=== PATIENT | male | born 1955 | race Caucasian/White ===

== ENCOUNTER 2020-07-08 15:59 | Outpatient (REF) | payer OTHER, SELFPAY ==
--- NOTE | 2020-07-08 16:01 | CT_ITS ---
EXAMINATION: CT CHEST SCREENING CLINICAL INFORMATION: Lung cancer screening COMPARISON: Previous chest CT scans most recent March 2020 TECHNIQUE: Multidetector volumetric CT imaging of the chest is performed without contrast using low dose technique. Additional 2D coronal and sagittal reformatted images and axial 3D maximum intensity projection (MIP) images are generated on the CT workstation. This CT examination was performed using dose optimization techniques as appropriate, variously including the following: *Automated exposure control *Adjustment of mA and/or kV according to patient size (this includes techniques or standardized protocols for targeted exams where dose is matched to indication/reason for exam; i.e. extremities or head) *Use of iterative reconstruction technique DLP: 65 mGy-cm FINDINGS: LUNGS: There is evidence of paraseptal emphysema. There is a biapical pleural and parenchymal scarring. The previously identified new 1.2 cm right apical pulmonary nodule just inferior to an apical bulla axial image 68 series 5 is unchanged from previous exam March 2020. There is a 3 x 4 mm right lower lobe nodule axial image 249 series 5 that is stable. There is a 2 mm peripheral or subpleural right middle lobe nodule axial image 288 series 5 that is stable. There is a 3 mm peripheral right lower lobe nodule axial image 308 series 5 that is stable. MEDIASTINUM: The ascending thoracic aorta is slightly dilated measuring 4.3 cm. The aortic arch and descending thoracic aorta are upper normal in size. The heart does not appear enlarged. There is minimal coronary artery calcification. There is no pericardial effusion. There are no enlarged lymph nodes. The visualized thyroid gland is unremarkable. PLEURA: There is no pleural effusion. No pleural mass or thickening. AXILLA: No lymphadenopathy. UPPER ABDOMEN: There may be cortical thinning or scarring in the upper pole of the left kidney. OSSEOUS STRUCTURES: There are degenerative changes of the spine. There are old left lateral rib fractures. CT/CT lung screening IMPRESSION: Paraseptal emphysema. Stable pulmonary nodules, largest a 1.1 cm apical right upper lobe nodule adjacent to small bulla or bleb. ASSESSMENT: Lung-RADS category 2: Benign RECOMMENDATION: Annual low-dose chest CT follow-up recommended.
== END 2020-07-08 16:00 | disposition home or self-care (01) ==
LOC: HO.CT 15:59
PROVIDERS: PCP Nurse Practitioner Family; Visit Provider Surgery
DX: Z12.2 Encounter for screening for malignant neoplasm of respiratory organs (principal); R91.1 Solitary pulmonary nodule; Z87.891 Personal history of nicotine dependence
CPT/HCPCS: 71250

== ENCOUNTER → 2020-07-18 08:47 | Outpatient (BNVA) | payer OTHER, SELFPAY | PROVIDERS: PCP Nurse Practitioner Family; Visit Provider Surgery | DX: R91.1 Solitary pulmonary nodule (principal); J44.9 Chronic obstructive pulmonary disease, unspecified | CPT/HCPCS: 99215 ==

== ENCOUNTER 2020-07-29 15:44 | Outpatient (REF) | payer OTHER, SELFPAY ==
--- NOTE | 2020-07-29 17:31 | PFT_ITS ---
INDICATION: Preop. SPIROMETRY: FEV1 to FVC 79% with an FEV1 of 3.23 L, which is 90% predicted, and an FVC of 4.1 L, which is 85% predicted. No significant response to bronchodilators noted. LUNG VOLUMES: Total lung capacity 98% predicted with diffusion capacity of 78% predicted. Flow volume loop appears to be relatively normal. No comparisons at this time. IMPRESSION: No obstructive nor restrictive ventilatory defects identified. No significant response to bronchodilators noted. Normal maximum voluntary ventilation. Lung volumes appear to be within normal limits. The patient does have an isolated mild diffusion impairment. Otherwise, normal study. Clinical correlation warranted. MD PAU Du/MODPatel / [id number]
== END 2020-07-29 15:45 | disposition home or self-care (01) ==
LOC: HO.RESP 15:44
PROVIDERS: PCP Nurse Practitioner Family; Visit Provider Surgery
DX: R91.1 Solitary pulmonary nodule (principal)
CPT/HCPCS: 94060; 94727; 94729

== ENCOUNTER 2020-11-03 10:13 | Outpatient (REF) | payer OTHER, SELFPAY ==
--- NOTE | ~2020-11-03 | XR_ITS ---
EXAMINATION: XR CHEST CLINICAL INFORMATION: Cough COMPARISON: 06/20/2018 TECHNIQUE: 2 views of the chest were obtained. FINDINGS: Mild tenting of the right hemidiaphragm is new from prior. On the lateral view, there is opacification overlying the cardiac silhouette, which may be in the anterior aspect of the right lower lobe. No pneumothorax. The cardiomediastinal silhouette is within normal limits. No acute osseous abnormality. XR/XR chest 2V IMPRESSION: Right basilar opacification, best seen on the lateral view, likely in the right lower lobe. This is suspicious for pneumonia. Follow-up to resolution.
== END 2020-11-03 10:14 | disposition home or self-care (01) ==
LOC: HO.XRAY 10:13
PROVIDERS: PCP Nurse Practitioner Family; Visit Provider Internal Medicine
DX: R05 Cough (principal); J45.909 Unspecified asthma, uncomplicated; J18.9 Pneumonia, unspecified organism; R06.02 Shortness of breath
CPT/HCPCS: 71046; 99212

== ENCOUNTER → 2020-12-04 15:41 | Outpatient (BNVA) | payer OTHER, SELFPAY | PROVIDERS: PCP Nurse Practitioner Family; Visit Provider Internal Medicine | DX: J18.9 Pneumonia, unspecified organism (principal); J44.9 Chronic obstructive pulmonary disease, unspecified; R05 Cough | CPT/HCPCS: 99212 ==

== ENCOUNTER → 2021-01-29 15:51 | Outpatient (BNVA) | payer OTHER, SELFPAY | PROVIDERS: PCP Nurse Practitioner Family; Visit Provider Internal Medicine | DX: J44.9 Chronic obstructive pulmonary disease, unspecified (principal); R91.1 Solitary pulmonary nodule | CPT/HCPCS: 99212 ==

== ENCOUNTER 2021-02-17 06:57 | Outpatient (REF) | payer OTHER, SELFPAY ==
[2021-02-17 11:55] LABS: Alanine Aminotransferase 18 U/L (0-40); Albumin Level 4.4 g/dL (3.5-5.0); Alkaline Phosphatase 78 U/L (39-117); Anion Gap 12 (12-20); Aspartate Amino Transferase 19 U/L (5-37); Bilirubin Total 0.6 mg/dL (0.0-1.0); Blood Urea Nitrogen 16 mg/dL (9-16); Calcium 9.3 mg/dL (8.4-10.2); Carbon Dioxide 29 mmol/L (22-29); Chloride 104 mmol/L (96-108); Cholesterol 176 mg/dL; Estimated Glomerular Filt Rate > 60; Glucose Fasting 92 mg/dL (60-99); HDL Cholesterol 68 mg/dL; LDL Cholesterol Calculated 96 mg/dl; Sodium 141 mmol/L (135-145); Total Protein 6.6 g/dL (6.5-8.0); Triglycerides 60 mg/dL
[2021-02-17 12:17] LABS: Prostate Specific Antigen Scr 1.43 ng/mL (<0.05-4.0); TSH reflex Free T4 1.45 uIU/mL (0.32-4.0)
== END 2021-02-17 06:58 | disposition home or self-care (01) ==
LOC: HO.HMGCLDS 06:57
PROVIDERS: PCP Nurse Practitioner Family; Visit Provider Nurse Practitioner Family
DX: Z00.00 Encounter for general adult medical examination without abnormal findings (principal); Z12.5 Encounter for screening for malignant neoplasm of prostate
CPT/HCPCS: 36415; 80053; 80061; 84153; 84443

== ENCOUNTER → 2021-06-01 15:54 | Outpatient (BNVA) | payer OTHER, SELFPAY | PROVIDERS: PCP Nurse Practitioner Family; Visit Provider Internal Medicine | DX: G47.33 Obstructive sleep apnea (adult) (pediatric) (principal); J44.9 Chronic obstructive pulmonary disease, unspecified; Z99.89 Dependence on other enabling machines and devices | CPT/HCPCS: 99212 ==

== ENCOUNTER 2021-09-03 15:42 | Outpatient (REF) | payer MEDICARE, SELFPAY ==
--- NOTE | ~2021-09-03 | US_ITS ---
EXAMINATION: US EXTREMITY NONVASCULAR, LEFT BACK CLINICAL INFORMATION: Soft tissue disorder, unspecified. COMPARISON: Chest CT 07/08/2020 and 04/09/2020. TECHNIQUE: Linear ultrasound probe was used to examine the area of clinical concern in the left back. FINDINGS: A 4.2 x 4.9 x 1.3 cm thickened hypoechoic area is seen in the left back which has ultrasound appearances similar to fat and most likely represents a lipoma. A similar area on the right upper back was examined which appeared normal. No abnormal fluid collections are seen. US/US extremity nonvascular vega IMPRESSION: 4.9 cm hypoechoic mass with echogenic characteristics of fat. This most likely represents a lipoma.
== END 2021-09-03 15:43 | disposition home or self-care (01) ==
LOC: HO.US 15:42
PROVIDERS: Visit Provider Nurse Practitioner Family
DX: M79.9 Soft tissue disorder, unspecified (principal); R22.2 Localized swelling, mass and lump, trunk
CPT/HCPCS: 76882

== ENCOUNTER → 2021-09-07 15:47 | Outpatient (BNVA) | payer MEDICARE, SELFPAY | PROVIDERS: PCP Nurse Practitioner Family; Visit Provider Internal Medicine | DX: G47.33 Obstructive sleep apnea (adult) (pediatric) (principal); R91.1 Solitary pulmonary nodule; J44.9 Chronic obstructive pulmonary disease, unspecified; Z99.89 Dependence on other enabling machines and devices | CPT/HCPCS: 99212 ==

== ENCOUNTER 2022-01-21 14:24 | Outpatient (REF) | payer MEDICARE, SELFPAY ==
--- NOTE | ~2022-01-21 | XR_ITS ---
EXAMINATION: XR CHEST CLINICAL INFORMATION: Bronchitis. COMPARISON: 11/03/2020 TECHNIQUE: 2 views of the chest were obtained. FINDINGS: The lungs are well expanded. There is no focal consolidation, edema, or effusion. No pneumothorax. The cardiomediastinal silhouette is within normal limits. No acute osseous abnormality. XR/XR chest 2V IMPRESSION: No acute pulmonary finding.
== END 2022-01-21 14:25 | disposition home or self-care (01) ==
LOC: HO.XRAY 14:24
PROVIDERS: PCP Nurse Practitioner Family; Visit Provider Internal Medicine
DX: J44.9 Chronic obstructive pulmonary disease, unspecified (principal); J40 Bronchitis, not specified as acute or chronic; R05.9 Cough, unspecified
CPT/HCPCS: 71046; 99212

== ENCOUNTER 2022-05-22 07:10 | Outpatient (REF) | payer MEDICARE, SELFPAY ==
[2022-05-22 08:30] LABS: Alanine Aminotransferase 30 U/L (0-40); Albumin Level 4.5 g/dL (3.5-5.0); Alkaline Phosphatase 78 U/L (39-117); Anion Gap 15 (12-20); Aspartate Amino Transferase 25 U/L (5-37); Bilirubin Total 0.5 mg/dL (0.0-1.0); Blood Urea Nitrogen 18 mg/dL (9-16); Calcium 9.6 mg/dL (8.4-10.2); Carbon Dioxide 27 mmol/L (22-29); Chloride 100 mmol/L (96-108); Cholesterol 203 mg/dL; Estimated Glomerular Filt Rate > 60; Glucose Fasting 107 mg/dL (60-99); HDL Cholesterol 53 mg/dL; LDL Cholesterol Calculated 133 mg/dl; Potassium 4.7 mmol/L (3.3-5.1); Sodium 137 mmol/L (135-145); Total Protein 6.8 g/dL (6.5-8.0); Triglycerides 88 mg/dL
[2022-05-22 08:53] LABS: TSH reflex Free T4 1.37 uIU/mL (0.32-4.0)
[2022-05-22 09:17] LABS: Appearance Urine Clear; Color Urine Dark Yellow; Glucose Urine UA Negative (Negative); Leukocyte Esterase Urine Trace (Negative); Nitrite Urine Negative (Negative); PH 5.5 (5.0-9.0); UMIC TRIGGER UACC YES; Urine Blood Negative (Negative); Urine Ketones Trace mg/dL (Negative); Urine Protein Trace mg/dL (Neg-Trace)
[2022-05-22 09:23] LABS: Bacteria Urine None Seen (None Seen); Hyaline Casts Urine 0-2 /LPF (0-2); RBC Urine 0-2 /HPF (0-2); Squamous Epithelial Cell Urine 0-2 /HPF (0-2); WBC Urine 0-5 /HPF (0-5)
== END 2022-05-22 07:11 | disposition home or self-care (01) ==
LOC: HO.LAB 07:10
PROVIDERS: PCP Nurse Practitioner Family; Visit Provider Nurse Practitioner Family
DX: Z00.00 Encounter for general adult medical examination without abnormal findings (principal)
CPT/HCPCS: 36415; 80053; 80061; 81001; 84443

== ENCOUNTER 2022-07-31 07:12 | Outpatient (REF) | payer MEDICARE, SELFPAY ==
[2022-07-31 08:10] LABS: Cholesterol 164 mg/dL; HDL Cholesterol 53 mg/dL; LDL Cholesterol Calculated 98 mg/dl; Triglycerides 68 mg/dL
== END 2022-07-31 07:13 | disposition home or self-care (01) ==
LOC: HO.LAB 07:12
PROVIDERS: PCP Nurse Practitioner Family; Visit Provider Nurse Practitioner Family
DX: E78.5 Hyperlipidemia, unspecified (principal)
CPT/HCPCS: 36415; 80061

== ENCOUNTER 2022-11-01 08:10 | Day surgery (SDC) | payer MEDICARE, SELFPAY ==
--- NOTE | 2022-10-29 13:41 | HO.ANESPROP2 ---
Documented by User: Audra Hung NP 10/29/22 13:41 HPI - Anesthesia Eval Consult details Narrative: 67yo M for Colonoscopy PMFSH Active Problems Active Problems: All Active Problems (Updated 05/22/22 @ 11:13 by Eb Crowell, [facility]) Dyslipidemia (Acute) Bronchitis (Acute) Physical exam (Acute) Soft tissue complaint (Acute) LUCINA on CPAP (Acute) COPD (chronic obstructive pulmonary disease) (Acute) Pneumonia (Acute) Mild reactive airways disease (Acute) Cough (Acute) Screening PSA (prostate specific antigen) (Acute) Physical exam (Acute) Pulmonary nodule (Acute) Past Medical History Medical History Bronchitis COPD (chronic obstructive pulmonary disease) Cough Erectile dysfunction Heart murmur HTN (hypertension) Mild reactive airways disease Nocturia LUCINA on CPAP Pneumonia Sleep apnea Tubular adenoma of colon Family History Family History Father No problems noted. Mother Cancer Surgical History Surgical History S/P lobectomy of lung Social History Social History Housing: House Patient Tobacco Use Status: Former Tobacco user e-Cigarette/Vaping Use: Never Used Use of substances other than those prescribed or required for medical reasons: No Are you DNR?: No Advance Directives: No Advance Directives Information Provided: Yes Recently lost weight without trying: No Nutrition Risks: No Nutritional Risk service: No Current occupational status: employed Cognitive needs: No Hearing needs: No Vision needs: Yes Meds Allergies Allergy/AdvReac Type Severity Reaction Status Date / Time No Known Allergies Allergy Verified 08/16/22 07:38 [No Known Allergies*] Home Medications Medication Instructions Recorded Confirmed Last Taken Type hydrochlorothiazide 25 mg tablet 25 mg PO DAILY 07/18/20 11/01/22 Unknown History losartan 100 mg tablet 100 mg PO DAILY 07/18/20 11/01/22 11/01/22 History multivitamin 1 tab PO DAILY 08/11/20 11/01/22 Unknown History Exam Exam Date and Time: October 29, 2022 134 Assessment and Plan Assessment Anesthesia Assessment: Chart Reviewed Documented by User: Jaydon Villasenor MD 11/01/22 09:13 [facility] Past Medical History Medical History Bronchitis COPD (chronic obstructive pulmonary disease) Cough Erectile dysfunction Heart murmur HTN (hypertension) Mild reactive airways disease Nocturia LUCINA on CPAP Pneumonia Sleep apnea Tubular adenoma of colon Family History Family History Father No problems noted. Mother Cancer Family history of problems with anesthesia: No Surgical History Surgical History S/P lobectomy of lung History of Problems with Anesthesia: No Social History Social History Housing: House Patient Tobacco Use Status: Former Tobacco user e-Cigarette/Vaping Use: Never Used Use of substances other than those prescribed or required for medical reasons: No Are you DNR?: No Advance Directives: No Advance Directives Information Provided: Yes Recently lost weight without trying: No Nutrition Risks: No Nutritional Risk service: No Current occupational status: employed Cognitive needs: No Hearing needs: No Vision needs: Yes Meds Allergies Allergy/AdvReac Type Severity Reaction Status Date / Time No Known Allergies Allergy Verified 08/16/22 07:38 [No Known Allergies*] Home Medications Medication Instructions Recorded Confirmed Last Taken Type hydrochlorothiazide 25 mg tablet 25 mg PO DAILY 07/18/20 11/01/22 Unknown History losartan 100 mg tablet 100 mg PO DAILY 07/18/20 11/01/22 11/01/22 History multivitamin 1 tab PO DAILY 08/11/20 11/01/22 Unknown History Exam Airway Mallampati Class: II TM Dist: >3cm Neck ROM: Limited Heart: rrr Lungs: cta Assessment and Plan Final Anesthetic Review Family History of Problems with Anesthesia: No History of Problems with Anesthesia: No NPO: Yes ASA Class: II Final Preanesthetic Review: No Changes in Pt Med Stat, Meds/Allgs Chart Reviewed, Consent Obtained/Reviewed and Anes Risks/Benef Reviewed Patient Risk: Intermediate Procedure Risk: Low Anesthetic Plan Anesthetic Plan: MAC: and Agree w/ Assess. and Plan Disposition: Standard PACU
[2022-11-01 09:03] VITALS: BMI 28.5
[2022-11-01 09:08] VITALS: BP 156/90; PULSE 78; RESP 16; TEMP 36.8; O2SAT 97
[2022-11-01] MEDS: Lactated Ringers 1,000 ML 100 ML IVCONT (09:21)
[2022-11-01 10:46] VITALS: BP 104/71; PULSE 62; RESP 18; TEMP 36.3; O2SAT 99
--- NOTE | 2022-11-01 10:46 | P.BOP_ITS ---
Brief Operative Note Date of Service: 11/01/22 Pre-op diagnosis: Screening Post-op diagnosis: other (Polyp) Procedure: Colonoscopy to the cecum and TI with bx/removal of polyp Surgeon: Bernabe Garza Anesthesia: MAC Was an Fisher Diving used for this Procedure?: No Estimated blood loss (mL): 2.0 Pathology: other (A. Polyp at 40cm) Condition: stable Disposition: PACU
[2022-11-01 11:01] VITALS: BP 109/79; PULSE 59; RESP 18; TEMP 36.8; O2SAT 99
--- NOTE | 2022-11-01 11:46 | OP_ITS ---
SURGEON: Bernabe Garza MD INDICATIONS: The patient presents for evaluation of personal history of tubular adenomas of the colon and colorectal cancer screening. Full consent has been obtained from him for this, including risks of bleeding and perforation. PREOPERATIVE DIAGNOSIS: POSTOPERATIVE DIAGNOSIS: PROCEDURE PERFORMED: Colonoscopy to the cecum and terminal ileum with biopsy and removal of polyp. ESTIMATED BLOOD LOSS: COMPLICATIONS: ANESTHESIA: Monitored anesthesia care. ASSISTANTS: SPECIMENS: PREOPERATIVE DIAGNOSES: Colorectal cancer screening and personal history of tubular adenomas of the colon. POSTOPERATIVE DIAGNOSES: Colorectal cancer screening and personal history of tubular adenomas of the colon, small colon polyp, mild sigmoid diverticulosis, small internal hemorrhoids. DESCRIPTION OF PROCEDURE: The patient was placed in the left lateral decubitus position. The digital rectal exam revealed no abnormalities. The Olympus video pediatric colonoscope was entered into the rectum and advanced easily to the cecum. Once in the cecum, I did identify a normal-appearing cecal pouch with appendiceal orifice and a normal-appearing ileocecal valve. The terminal ileum was cannulated and appeared normal. The scope was withdrawn back in the colon. The entire cecum and ileocecal valve appeared normal. The scope was slowly withdrawn assessing all mucosal surfaces carefully. Preparation was excellent. At 40 cm, was a flat, approximately 4 mm polyp, which is biopsied and completely removed with a cold biopsy forceps. I did not visualize any other polyps, colitis, nor angiodysplasia. There was a mild amount of sigmoid diverticulosis. In the rectum, the scope was retroflexed visualizing small internal hemorrhoids, but no other pathology. The rectal mucosa appeared normal. The scope was straightened out and withdrawn from the patient. He tolerated the procedure well and was returned to the recovery area in stable condition. IMPRESSION: 1. Small colon polyp. 2. Diverticulosis. 3. Internal hemorrhoids. PLAN: The results of the biopsy will be checked. Given his previous history, I would recommend a followup colonoscopy in 3 years for further surveillance. He would otherwise see me on a p.r.n. basis. MD CAIN Mercer/EZIO / [id number]
== END 2022-11-01 11:30 | disposition home or self-care (01) ==
PROVIDERS: PCP Nurse Practitioner Family; Visit Provider Internal Medicine
PROC: 0DJD8ZZ Inspection of Lower Intestinal Tract, Via Natural or Artificial Opening Endoscopic (ICD-10-PCS; CPT 45378; principal; 2022-11-01 09:40)
DX: Z12.11 Encounter for screening for malignant neoplasm of colon (principal); D12.5 Benign neoplasm of sigmoid colon; K57.30 Diverticulosis of large intestine without perforation or abscess without bleeding; K64.8 Other hemorrhoids; I10 Essential (primary) hypertension; J44.9 Chronic obstructive pulmonary disease, unspecified; G47.33 Obstructive sleep apnea (adult) (pediatric); Z79.51 Long term (current) use of inhaled steroids; Z99.89 Dependence on other enabling machines and devices; Z85.118 Personal history of other malignant neoplasm of bronchus and lung; Z87.891 Personal history of nicotine dependence
CPT/HCPCS: 45380; 88305

== ENCOUNTER 2023-03-30 15:44 | Outpatient (AMB) | payer MEDICARE, SELFPAY ==
[2023-03-30 15:46] VITALS: BP 124/68; PULSE 73; O2SAT 97; BMI 28.6
--- NOTE | 2023-03-30 15:46 | MHC.OFFVIS ---
Intake Vital Signs 03/30/23 15:46 Height 5 ft 11 in Weight 205 lb 0.478 oz BMI 28.6 BP 124/68 Blood Pressure Location Lt brachial Position Sitting Pulse 73 Pulse Source Pulse Oximeter Pulse Oximetry (%) 97 Oxygen Delivery Method Room Air Intake Visit Reasons: Shortness of breath Steward/Stewardess Dining Room Required: No Allergies No Known Allergies [No Known Allergies*] Allergy (Verified 03/30/23 16:08) Medication List - Last Reconciled 03/30/23 by Apoorva Gage MD albuterol sulfate 90 mcg/actuation 2 puffs inhalation Q4-6H PRN 30 days clindamycin phosphate 1% topical BID PRN fluticasone propionate 50 mcg/actuation (Allergy Relief (fluticasone)) 1 spray intranasal DAILY 30 days halobetasol propionate 0.05% appl topical hydrochlorothiazide 25 mg PO DAILY losartan 100 mg PO DAILY multivitamin 1 tab PO DAILY rosuvastatin 5 mg PO DAILY sildenafil 50 mg PO DAILY PRN 14 days Do you need a note to return to daycare/school/sports/work: No HPI Shortness of breath HPI Details CAMERON IS 67 YEARS OLD VERY PLEASANT GENTLEMAN WHO IS COMING AFTER 1 YEAR FOR HIS FOLLOW-UP. HE IS THE 3 YEARS POST RIGHT UPPER LOBECTOMY FOR NEOPLASTIC LESION. HE IS BEING FOLLOWED BY DR.LAKI MUNOZ , AND HAS BEEN GETTING CT SCAN ON A YEARLY BASIS. HE HAS PAST HISTORY OF SMOKING BUT QUIT ABOUT 11 YEARS AGO. HIS PULMONARY FUNCTION TEST AND SPIROMETRY IN THE OFFICE HAVE SHOWN ONLY MILD OBSTRUCTIVE AIRWAY DISORDER. HE HAS BEEN USING ALBUTEROL INHALER P.R.N., AND SAY IS THAT DURING THE PAST 1 YEAR HE HAS NOT USED IT AT ALL. LUCKILY HE HAS HAD NO ACUTE RESPIRATORY INFECTION. HE GETS SHORT OF BREATH ONLY IF WHEN HE CLIMBS ABOUT 2 FLIGHTS SAYS OF STAIRS, AND CARRYING 1 BAG. BUT ON LEVEL GROUND HE CAN WALK UP TO 3 MILES WITHOUT GETTING SHORT OF BREATH. HE DENIES COUGH OR WHEEZING. [facility] Medical History Bronchitis COPD (chronic obstructive pulmonary disease) Cough Erectile dysfunction Heart murmur HTN (hypertension) Mild reactive airways disease Nocturia LUCINA on CPAP Pneumonia Sleep apnea Tubular adenoma of colon Surgical History S/P lobectomy of lung Family History Father No problems noted. Mother Cancer Social History Housing: House Patient Tobacco Use Status: Former Tobacco user e-Cigarette/Vaping Use: Never Used service: No Current occupational status: employed Cognitive needs: No Hearing needs: No Vision needs: Yes Review of Systems Const All systems reviewed & are unremarkable except as noted in HPI and below Eyes Reports no additional complaints ENT Reports no additional complaints Card Denies chest pain, Denies irregular heart rhythm and Denies leg edema Resp Reports as per HPI GI Reports no additional complaints Reports erectile dysfunction Musc Reports no additional complaints Skin/Breast Reports system reviewed and no additional complaints, except as documented Neuro Reports no additional complaints Psych Reports no additional complaints Physical Exam Vital Signs: Last Vital Signs Pulse 73 03/30/23 15:46 BP 124/68 03/30/23 15:46 Pulse Ox 97 03/30/23 15:46 Oxygen Delivery Method Room Air 03/30/23 15:46 BMI result Body Mass Index 28.6 Const General: healthy appearing, comfortable, no acute distress, alert and awake Orientation/consciousness: patient oriented x3 HEENT Head: Yes normal to inspection General nose exam: No nasal polyps present and No nasal discharge present Face and sinus: Yes sinuses nontender Mouth: oropharynx normal Throat: Yes posterior oropharynx normal Eyes General: appearance normal, both eyes and all related structures Neck Neck: Yes normal visual inspection, Yes no lymphadenopathy, Yes trachea midline and Yes no JVD Thyroid: Thyroid normal Chest Chest palpation & inspection: normal inspection of the chest, normal palpation of entire chest wall and no tenderness Resp Effort & Inspection: normal respiratory effort Auscultation: clear to auscultation bilaterally, no crackles, no rhonchi and no wheezes Cardio Palpation: normal PMI Rate: regular rate Rhythm: regular rhythm Heart sounds: no gallops and no murmurs GI Palpation (GI): Soft to palpation, nontender, No hepatosplenomegaly present and no masses Auscultation: normal bowel sounds Back/Spine/Pelvis Thoracic/Lumbar Spine: thoracic and lumbar spine normal to inspection Skin General skin exam: no rashes or lesions noted Neuro General: patient oriented x3 and no focal motor deficits Cranial nerves: Yes CN's II-XII intact bilaterally Extrem General: Yes normal to inspection, Yes no clubbing, cyanosis or edema and Yes no calf tenderness Psych Appearance: grossly normal and well kempt Speech and movement: Normal speech and movement present Assessment & Plan Assessment & Plan (1) COPD (chronic obstructive pulmonary disease): Comment: He has past history of smoking that he quit about 12 years ago. Has been treated for mild COPD. tx: Continue to use albuterol HFA 2 puffs Q 4-6 hours only p.r.n. Code(s): J44.9 - Chronic obstructive pulmonary disease, unspecified (2) LUCINA on CPAP: Comment: PATIENT DOES HAVE HISTORY OF OBSTRUCTIVE SLEEP APNEA, FOR THE PAST MANY YEARS. AND HE IS USING CPAP EVERY NIGHT, SLEEPS VERY GOOD. NO ISSUES RELATED TO THE MASK OR CPAP DEVICE AT THIS TIME. Code(s): G47.33 - Obstructive sleep apnea (adult) (pediatric); Z99.89 - Dependence on other enabling machines and devices (3) Pulmonary nodule: Comment: RT LOWER LOBE , S/P RESECTION . RESOLVED Code(s): R91.1 - Solitary pulmonary nodule Coding Level of Care Code Est Pt Level 3 (02686) Diagnoses COPD (chronic obstructive pulmonary disease) J44.9 LUCINA on CPAP G47.33; Z99.89 Pulmonary nodule R91.1
== END 2023-03-30 16:05 | disposition home or self-care (01) ==
PROVIDERS: PCP Nurse Practitioner Family; Visit Provider Internal Medicine
DX: J44.9 Chronic obstructive pulmonary disease, unspecified (principal); G47.33 Obstructive sleep apnea (adult) (pediatric); Z99.89 Dependence on other enabling machines and devices; R91.1 Solitary pulmonary nodule
CPT/HCPCS: 99213

== ENCOUNTER → 2023-03-30 15:44 | Outpatient (BNVA) | payer MEDICARE, SELFPAY | PROVIDERS: PCP Nurse Practitioner Family; Visit Provider Internal Medicine | DX: J44.9 Chronic obstructive pulmonary disease, unspecified (principal); G47.33 Obstructive sleep apnea (adult) (pediatric); R91.1 Solitary pulmonary nodule; Z87.891 Personal history of nicotine dependence; Z90.2 Acquired absence of lung [part of]; Z99.89 Dependence on other enabling machines and devices | CPT/HCPCS: 99212 ==

== ENCOUNTER 2023-05-23 08:39 | Outpatient (AMB) | payer MEDICARE, SELFPAY ==
[2023-05-23 08:40] VITALS: BP 158/82; PULSE 73; TEMP 36.7; O2SAT 98; BMI 28.4
--- NOTE | 2023-05-23 08:40 | MHC.OFFWIV ---
Intake Vital Signs 05/23/23 08:40 Height 5 ft 11 in Weight 204 lb BMI 28.4 BP 158/82 H Blood Pressure Location Rt brachial Position Sitting Pulse 73 Pulse Source Pulse Oximeter Temp 98.1 F Temp Source Temporal Artery Scan Pulse Oximetry (%) 98 Intake Visit Reasons: EP, cough, congestion (masked) Intake Note: pt is here for c/o cough with congestion 2x weeks Patient Tobacco Use Status: Former Tobacco user Allergies No Known Allergies [No Known Allergies*] Allergy (Verified 05/23/23 09:00) Medication List - Last Reconciled 05/23/23 by Farshad Aguero MD clindamycin phosphate 1% topical BID PRN halobetasol propionate 0.05% appl topical hydrochlorothiazide 25 mg PO DAILY losartan 100 mg PO DAILY multivitamin 1 tab PO DAILY rosuvastatin 5 mg PO DAILY sildenafil 50 mg PO DAILY PRN 14 days Do you need a note to return to daycare/school/sports/work: Yes HPI EP, cough, congestion (masked) HPI Details Patient presents for a sick visit. Reporting symptoms of sinus congestion, sore throat and difficulty swallowing. Low-grade fever. No family member is sick. No recent travel. Patient reports symptoms of malaise and fatigue. [facility] Medical History Bronchitis COPD (chronic obstructive pulmonary disease) Cough Erectile dysfunction Heart murmur HTN (hypertension) Mild reactive airways disease Nocturia LUCINA on CPAP Pneumonia Sleep apnea Tubular adenoma of colon Surgical History S/P lobectomy of lung Family History Father No problems noted. Mother Cancer Social History Housing: House Patient Tobacco Use Status: Former Tobacco user e-Cigarette/Vaping Use: Never Used service: No Current occupational status: employed Cognitive needs: No Hearing needs: No Vision needs: Yes Physical Exam Vital Signs: Last Vital Signs Temp 98.1 F 05/23/23 08:40 Pulse 73 05/23/23 08:40 BP 158/82 H 05/23/23 08:40 Pulse Ox 98 05/23/23 08:40 BMI result Body Mass Index 28.4 Const General: cooperative and healthy appearing Nutritional Appearance: well nourished Orientation/consciousness: patient oriented x3 Limitations: no limitations HEENT Head: Yes normal to inspection Eyes General: appearance normal, both eyes and all related structures Neck Neck: Yes normal visual inspection Chest Chest palpation & inspection: normal palpation of entire chest wall Resp Effort & Inspection: normal respiratory effort Neuro General: patient oriented x3 Assessment & Plan Assessment & Plan (1) Bronchitis: Comment: His current symptoms, mainly that of cough, indicates presence of acute bronchitis, Tx : Z-Mars for 5 days prescribed. Robitussin syrup 2 tsp t.i.d.. Use albuterol HFA 2 puffs Q 4-6 hours p.r.n.. Code(s): J40 - Bronchitis, not specified as acute or chronic Coding Level of Care Code Est Pt Level 3 (01960) Diagnoses Bronchitis J40
== END 2023-05-23 09:06 | disposition home or self-care (01) ==
PROVIDERS: PCP Nurse Practitioner Family; Visit Provider Internal Medicine
DX: J40 Bronchitis, not specified as acute or chronic (principal)
CPT/HCPCS: 99213

== ENCOUNTER 2023-05-28 10:33 | Outpatient (AMB) | payer MEDICARE, SELFPAY ==
--- NOTE | 2023-05-28 12:23 | MHC.OFFWIV ---
Intake Vital Signs 05/28/23 12:26 Weight 205 lb BP 120/80 Blood Pressure Location Lt brachial Position Sitting Pulse 71 Pulse Source Pulse Oximeter Temp 98 F Temp Source Oral Pulse Oximetry (%) 98 Oxygen Delivery Method Room Air Intake Visit Reasons: EP, cough,congestion still not better [phone] Intake Note: Patient here with cough, congestion and wheezing that has been present for about 1 week. When he was here on tuesday he was advised he had bronchitis Patient Tobacco Use Status: Former Tobacco user Allergies No Known Allergies [No Known Allergies*] Allergy (Verified 05/28/23 12:48) Medication List - Last Reconciled 05/28/23 by Hazel Yan CNP albuterol sulfate 90 mcg/actuation (Ventolin HFA) 1 inh inhalation QID PRN azithromycin take 500 mg today (day 1), then 250 mg for 4 days (days 2-5) PO clindamycin phosphate 1% topical BID PRN halobetasol propionate 0.05% appl topical hydrochlorothiazide 25 mg PO DAILY losartan 100 mg PO DAILY multivitamin 1 tab PO DAILY rosuvastatin 5 mg PO DAILY sildenafil 50 mg PO DAILY PRN 14 days HPI HPI Comments History of Present Illness Details 68 y/o male presents today for a sick visit. Patient c/o cough, congestion and wheezing with no relief from z-pack prescribed on 05/23/2023 here at the walk in clinic, and Robitussin Cough Syrup. He denies fever, chills, CP, SOB, abdominal pain, nausea, vomiting, changes in bowels or bladder. He reports ongoing irritating cough and wheezes. [facility] Medical History Bronchitis LUCINA on CPAP Pneumonia Mild reactive airways disease Cough Tubular adenoma of colon Erectile dysfunction Nocturia Sleep apnea COPD (chronic obstructive pulmonary disease) HTN (hypertension) Heart murmur Surgical History S/P lobectomy of lung Family History Father No problems noted. Mother Cancer Social History Housing: House Patient Tobacco Use Status: Former Tobacco user e-Cigarette/Vaping Use: Never Used service: No Current occupational status: employed Cognitive needs: No Hearing needs: No Vision needs: Yes Review of Systems Const All systems reviewed & are unremarkable except as noted in HPI and below Physical Exam Vital Signs: Last Vital Signs Temp 98 F 05/28/23 12:26 Pulse 71 05/28/23 12:26 BP 120/80 05/28/23 12:26 Pulse Ox 98 05/28/23 12:26 Oxygen Delivery Method Room Air 05/28/23 12:26 Const General: cooperative and healthy appearing Nutritional Appearance: well nourished Orientation/consciousness: patient oriented x3 Limitations: no limitations HEENT Head: Yes normal to inspection Eyes General: appearance normal, both eyes and all related structures Neck Neck: Yes normal visual inspection Chest Chest palpation & inspection: normal palpation of entire chest wall Resp Effort & Inspection: normal respiratory effort, Actively coughing Quality: dry, no respiratory distress and not tachypneic Auscultation: wheezes left upper Neuro General: patient oriented x3 Assessment & Plan Assessment & Plan (1) Bronchitis: Code(s): J40 - Bronchitis, not specified as acute or chronic Plan: 68-year-old male seen today for unresolved symptoms of bronchitis with 5 day RX of Zpack, and Robitussin Cough Syrup. Will treat with augmentin 1 tab po bid x 7 days, encouraged to take w/ food or milk to reduce GI upset. Tapered prednisone dose for airway inflammation; 20 mg po bid x 3 days, followed by 20 mg po qd x 3 days, followed by 10 mg po qd x 3 days and discontinue. \ Encouraged to f/u with PCP, and return to office with worsening or unresolved symptoms. Medications: New amoxicillin-pot clavulanate 875-125 mg 1 tab PO BID 7 days 14 tabs 0RF J40 - Bronchitis, not specified as acute or chronic prednisone this is a tapered dose, take 20 mg po bid x 3 days, then take 20 mg po qd x 3 days, then 1/2 a tab po qd x 3 days, then discontinue. 20 mg PO BID 11 tabs 0RF J40 - Bronchitis, not specified as acute or chronic Coding Level of Care Code Est Pt Level 3 (69148) Diagnoses Bronchitis J40
[2023-05-28 12:26] VITALS: BP 120/80; PULSE 71; TEMP 36.6; O2SAT 98
== END 2023-05-28 13:00 | disposition home or self-care (01) ==
PROVIDERS: PCP Nurse Practitioner Family; Visit Provider Nurse Practitioner Acute Care
DX: J40 Bronchitis, not specified as acute or chronic (principal)
CPT/HCPCS: 99213

== ENCOUNTER 2023-06-02 15:40 | Outpatient (REF) | payer MEDICARE, SELFPAY ==
--- NOTE | ~2023-06-02 | XR_ITS ---
EXAMINATION: XR CHEST 2 VIEWS CLINICAL INFORMATION: COPD. COMPARISON: Prior chest radiographs, most recently 01/21/2022. TECHNIQUE: Frontal and lateral views of the chest were obtained. FINDINGS: The heart, great vessels, pulmonary vasculature and mediastinum are normal, accounting for rotation on the frontal view. The lungs show no focal infiltrate, effusion or pneumothorax. There is no acute osseous abnormality. XR/XR chest 2V IMPRESSION: No active cardiopulmonary disease.
== END 2023-06-02 15:41 | disposition home or self-care (01) ==
LOC: HO.LAB 15:40
PROVIDERS: PCP Nurse Practitioner Family; Visit Provider Internal Medicine
DX: J40 Bronchitis, not specified as acute or chronic (principal); G47.33 Obstructive sleep apnea (adult) (pediatric); Z99.89 Dependence on other enabling machines and devices; Z79.899 Other long term (current) drug therapy
CPT/HCPCS: 36415; 71046; 85025; 86141; 99212

== ENCOUNTER 2023-06-02 15:40 | Outpatient (AMB) | payer MEDICARE, SELFPAY ==
[2023-06-02 15:46] VITALS: BP 120/70; PULSE 99; O2SAT 97; BMI 28.6
--- NOTE | 2023-06-02 15:46 | MHC.OFFVIS ---
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 Allergies No Known Allergies [No Known Allergies*] Allergy (Verified 06/02/23 16:08) Medication List - Last Reconciled 06/02/23 by Apoorva Gage MD albuterol sulfate 90 mcg/actuation (Ventolin HFA) 1 inh inhalation QID PRN amoxicillin-pot clavulanate 875-125 mg 1 tab PO BID 7 days clindamycin phosphate 1% topical BID PRN halobetasol propionate 0.05% appl topical hydrochlorothiazide 25 mg PO DAILY losartan 100 mg PO DAILY multivitamin 1 tab PO DAILY prednisone 20 mg PO BID rosuvastatin 5 mg PO DAILY sildenafil 50 mg PO DAILY PRN 14 days HPI persistent cough HPI Details Bernabe is 68 years old very pleasant gentleman. Who has obstructive sleep apnea and uses CPAP regularly. He does not have any chronic obstructive pulmonary disease. Since about 2 weeks ago he is having cough congested feeling. Seen in urgent care on 05/23, treated with a course of azithromycin, His cough continued with congested feeling. Seen in the urgent care clinic on 05/28/23 , diagnosed to have possible but acute bronchitis. Started on prednisone taper and Augmentin . He is senior living into completing the is the combination. Denies fever or chills. Denies any chest pain. But he continues to have frequent cough, due to irritation in the throat and deep down in the upper airways. Cough is not very productive especially in the morning with some yellowish phlegm. He is also using albuterol p.r.n. without much help. In December of this year he was treated for a E small patchy pneumonia in the right upper lobe. He has come to see me today on an urgent basis. HE IS EX SMOKER QUIT ABOUT 12 YEARS AGO. HE DOES HAVE MILD CHRONIC OBSTRUCTIVE PULMONARY DISEASE AND HAS BEEN USING ONLY ALBUTEROL P.R.N.. HE HAS OBSTRUCTIVE SLEEP APNEA FOR WHICH HE USES CPAP EVERY NIGHT REGULARLY. [facility] Medical History Bronchitis LUCINA on CPAP Pneumonia Mild reactive airways disease Cough Tubular adenoma of colon Erectile dysfunction Nocturia Sleep apnea COPD (chronic obstructive pulmonary disease) HTN (hypertension) Heart murmur Surgical History S/P lobectomy of lung Family History Father No problems noted. Mother Cancer Social History Housing: House Patient Tobacco Use Status: Former Tobacco user e-Cigarette/Vaping Use: Never Used service: No Current occupational status: employed Cognitive needs: No Hearing needs: No Vision needs: Yes Review of Systems Const All systems reviewed & are unremarkable except as noted in HPI and below Eyes Reports no additional complaints ENT Reports no additional complaints Card Denies chest pain, Denies irregular heart rhythm and Denies leg edema Resp Reports as per HPI GI Reports no additional complaints Reports erectile dysfunction Musc Reports no additional complaints Skin/Breast Reports system reviewed and no additional complaints, except as documented Neuro Reports no additional complaints Psych Reports no additional complaints Physical Exam Const General: healthy appearing, comfortable, no acute distress, alert and awake Orientation/consciousness: patient oriented x3 HEENT Head: Yes normal to inspection General nose exam: No nasal polyps present and No nasal discharge present Face and sinus: Yes sinuses nontender Mouth: oropharynx normal Throat: Yes posterior oropharynx normal Eyes General: appearance normal, both eyes and all related structures Neck Neck: Yes normal visual inspection, Yes no lymphadenopathy, Yes trachea midline and Yes no JVD Thyroid: Thyroid normal Chest Chest palpation & inspection: normal inspection of the chest, normal palpation of entire chest wall and no tenderness Resp Other: Percussion note is resonant, has good breath sounds on both sides. The breath sounds over the right upper lobe and right mid lobe are somewhat harsh, but no crepitations or wheezes. Cardio Palpation: normal PMI Rate: regular rate Rhythm: regular rhythm Heart sounds: no gallops and no murmurs GI Palpation (GI): Soft to palpation, nontender, No hepatosplenomegaly present and no masses Auscultation: normal bowel sounds Back/Spine/Pelvis Thoracic/Lumbar Spine: thoracic and lumbar spine normal to inspection Skin General skin exam: no rashes or lesions noted Neuro General: patient oriented x3 and no focal motor deficits Cranial nerves: Yes CN's II-XII intact bilaterally Extrem General: Yes normal to inspection, Yes no clubbing, cyanosis or edema and Yes no calf tenderness Psych Appearance: grossly normal and well kempt Speech and movement: Normal speech and movement present Assessment & Plan Assessment & Plan (1) COPD (chronic obstructive pulmonary disease): Comment: He has past history of smoking that he quit about 12 years ago. Has been treated for mild COPD with albuterol HFA 2 puffs Q 4-6 hours only p.r.n.. Code(s): J44.9 - Chronic obstructive pulmonary disease, unspecified (2) Bronchitis: Comment: At present he seems to have, acute bronchitis, most likely secondary to virus infection. With continued residual cough. I think he has post infectious cough due to reactive airways. I HAVE ORDERED A CHEST X-RAY TO MAKE SURE THAT HE DOES NOT HAVE PNEUMONIA. ALSO ORDERED CBC WITH DIFF AND CRP . TO RULE OUT AN ACUTE INFECTIOUS PROCESS. TX ; THE BEST THING WOULD BE TO USE STEAM INHALATION 2 OR 3 TIMES A DAY. MUCINEX TABLET 400 OR 600 MG B.I.D.. MAY ALSO USE ROBITUSSIN EXPECTORANT 2 TSP Q 4-6 HOURS P.R.N.. COMPLETE THE TAPERING COURSE OF PREDNISONE. COMPLETE AUGMENTIN FOR 1 WEEK. * I TOLD HIM COUGH MAY LINGER ON FOR ABOUT 2-3 MORE WEEKS, AND HE WILL JUST HAVE TO WAIT IT OUT. HOWEVER IF I SEE ANY INDICATION PNEUMONIA AND THEN WILL TREAT HIM WITH APPROPRIATE ANTIBIOTIC. Code(s): J40 - Bronchitis, not specified as acute or chronic (3) Cough: Comment: COUGH IS SECONDARY TO ACUTE BRONCHITIS, ON TOP OF HIS MILD CHRONIC OBSTRUCTIVE PULMONARY DISEASE. TX: UNDER BRONCHITIS. Code(s): R05 - Cough Orders: Orders XR chest 2V Today J40 - Bronchitis, not specified as acute or chronic, J44.9 - Chronic obstructive pulmonary disease, unspecified Complete Blood Count Auto Diff Today J40 - Bronchitis, not specified as acute or chronic, J44.9 - Chronic obstructive pulmonary disease, unspecified, R05 - Cough CRP High Sensitivity Today J40 - Bronchitis, not specified as acute or chronic, J44.9 - Chronic obstructive pulmonary disease, unspecified, R05 - Cough Coding Level of Care Code Est Pt Level 3 (94396) Diagnoses COPD (chronic obstructive pulmonary disease) J44.9 Bronchitis J40 Cough R05
== END 2023-06-02 16:04 | disposition home or self-care (01) ==
PROVIDERS: PCP Nurse Practitioner Family; Visit Provider Internal Medicine
DX: J44.9 Chronic obstructive pulmonary disease, unspecified (principal); J40 Bronchitis, not specified as acute or chronic; R05.9 Cough, unspecified
CPT/HCPCS: 99213

== ENCOUNTER 2023-09-05 07:27 | Outpatient (AMB) | payer MEDICARE, SELFPAY ==
--- NOTE | 2023-09-05 07:36 | MHC.PC.OV ---
Vital Signs 09/05/23 07:39 Height 5 ft 11 in Weight 206 lb 4 oz BMI 28.8 BP 124/70 Blood Pressure Location Rt brachial Position Sitting Pulse 76 Pulse Source Pulse Oximeter Pulse Oximetry (%) 98 Oxygen Delivery Method Room Air Intake Visit Reasons: Annual PE Intake Note: Patient here for physical exam. Colonoscopy:2022 Dr. Garza Allergies No Known Allergies [No Known Allergies*] Allergy (Verified 09/05/23 07:40) Medication List - Last Reconciled 09/05/23 by LIO Ferreira-GABI clindamycin phosphate 1% topical BID PRN halobetasol propionate 0.05% appl topical hydrochlorothiazide 25 mg PO DAILY losartan 100 mg PO DAILY multivitamin 1 tab PO DAILY rosuvastatin 5 mg PO DAILY tadalafil (Cialis) 10 mg PO DAILY PRN Tobacco use date assessed: 09/05/23 Fall risk assessment: No Falls in past year Last assessed Fall Risk: 09/05/23 Dental Screening Dental Screen Date: 09/05/23 Did you have a dental visit in the last 12 months?: Yes Did you have a dental problem in the last 6 months where you did not have access to dental care?: No Was dental information given to patient?: Patient has dentist HPI Annual PE HPI Details Pt is here for a PE. Will order labs. Colon screen is up to date. Due for PSA, will order. Denies dribbling with urination, weak stream, and frequent nocturia. Informed pt that he can obtain his pneumonia vaccine at his pharmacy. Pt follows up with pulmonology, cardiology, and thoracic. Pt c/o ED. He reports that sildenafil is not helping. Will send cialis. [facility] Medical History (Updated 09/05/23 @ 08:09 by LIO Ferreira-GABI) Bronchitis LUCINA on CPAP Pneumonia Mild reactive airways disease Cough Tubular adenoma of colon Erectile dysfunction Nocturia Sleep apnea COPD (chronic obstructive pulmonary disease) HTN (hypertension) Heart murmur Surgical History S/P lobectomy of lung Family History Father No problems noted. Mother Cancer Social History Housing: House Patient Tobacco Use Status: Former Tobacco user e-Cigarette/Vaping Use: Never Used service: No Current occupational status: employed Cognitive needs: No Hearing needs: No Vision needs: Yes Questionnaire Thrive Questionnaire Date Thrive assessed: 08/16/22 AUDIT C Alcohol Use Questionnaire (AUDIT-C) 1. How often do you have a drink containing alcohol?: Monthly or less 2. How many drinks containing alcohol do you have on a typical day when you are drinking?: 1 or 2 3. How often do you have six or more drinks on one occasion?: Never Total Score: 1 Score Reviewed/Action Taken: No MARYAM-7 AMB Questionnaire MARYAM-7 Date MARYAM - 7 assessed: 08/12/21 Source: Developed by Drs. Bernabe Dodson, Consuelo Antony, Garth Tolliver and colleagues, with an educational miah from [employer]. Review of Systems Const Denies chills and Denies fever(s) Eyes Denies blurry vision ENT Denies vertigo, Denies dizziness and Denies sore throat Card Denies chest pain at rest, Denies chest pain with activity, Denies diaphoresis, Denies dyspnea and Denies dyspnea on exertion Resp Denies cough, Denies dyspnea, Denies dyspnea on exertion and Denies wheezing GI Denies abdominal pain, Denies melena, Denies hematochezia, Denies constipation, Denies diarrhea and Denies loose stools Denies hematuria Musc Denies numbness and Denies tingling Skin/Breast Denies lesions Neuro Denies vertigo, Denies dizziness, Denies numbness and Denies tingling Psych Denies anxiety, Denies depression, Denies homicidal ideation, Denies suicidal ideation and Denies other (substance abuse) Aller/Immun Denies wheezing Physical exam (Primary Care) Vital Signs: Last Vital Signs Pulse 76 09/05/23 07:39 BP 124/70 09/05/23 07:39 Pulse Ox 98 09/05/23 07:39 Oxygen Delivery Method Room Air 09/05/23 07:39 BMI result Body Mass Index 28.8 Tobacco/Smoking Status: Tobacco use Status Tobacco use date assessed 09/05/23 09/05/23 07:42 Patient Tobacco Use Status Former Tobacco user 01/08/24 07:38 e-Cigarette/Vaping Use Never Used 09/05/23 07:38 Thrive Assessment: Date of Thrive Assessment Date Thrive assessed 08/16/22 09/05/23 07:38 Const General: cooperative Nutritional Appearance: well nourished Orientation/consciousness: patient oriented x3 HENMT Head: Yes normal to inspection, Yes normocephalic and Yes atraumatic Ears: TM's normal bilaterally Eyes General: appearance normal, both eyes and all related structures Alignment and Position: alignment normal and position normal Neck Neck: Yes normal visual inspection and Yes no lymphadenopathy Thyroid: Thyroid normal Resp Effort & Inspection: normal respiratory effort Auscultation: clear to auscultation bilaterally Cardio Rate: regular rate Rhythm: regular rhythm Heart sounds: S1 normal heart sound present, S2 normal heart sound present and Murmur heart sound present systolic GI Palpation (GI): Soft to palpation and nontender Auscultation: normal bowel sounds Male General Exam: Yes normal external exam Penis: normal penis Scrotum: scrotum normal, testes descended bilaterally and no inguinal hernias Testes: no testicular mass Skin Other: large lipoma to left upper trap Rashes: no rashes Neuro General: patient oriented x3, moves all extremities, no focal motor deficits and deep tendon reflexes 2+ bilaterally Romberg Test: Negative Psych Appearance: grossly normal Mental Status: mental status grossly normal Speech and movement: Normal speech and movement present Affect: normal affect Attitude: cooperative Thought process: Normal thought process present Thought content: Normal thought content present Insight: Good insight present (Psych) Judgement: Good judgement present (Psych) Assessment and Plan Assessment & Plan (1) Physical exam: Code(s): Z00.00 - Encounter for general adult medical examination without abnormal findings Plan: Labs ordered (2) Vitamin D deficiency: Code(s): E55.9 - Vitamin D deficiency, unspecified (3) Erectile dysfunction: Code(s): N52.9 - Male erectile dysfunction, unspecified Plan: sildenafil did not work, cialis was sent today Plan The patient agreed to the use of a medical artist for this encounter. Scribed for SELMA Antoine by Suha Sharma medical artist, on 09/05/2023 at 08:00 EST. Orders: Orders Complete Blood Count Auto Diff Today Z00.00 - Encounter for general adult medical examination without abnormal findings TSH reflex Free T4 Today Z00.00 - Encounter for general adult medical examination without abnormal findings Lipid Panel Today Z00.00 - Encounter for general adult medical examination without abnormal findings Comprehensive [place]. Panel Fast Today Z00.00 - Encounter for general adult medical examination without abnormal findings UA CC w/rflx Micro + Cult Today Z00.00 - Encounter for general adult medical examination without abnormal findings Prostate Specific Antigen Scr Today Z12.5 - Encounter for screening for malignant neoplasm of prostate Vitamin D 25-OH Total Today E55.9 - Vitamin D deficiency, unspecified Medications: New tadalafil (Cialis) administer approximately 30min before sexual activity; do not use more than 1 dose per 24hrs 10 mg PO DAILY PRN 10 tabs 0RF sexual activity Discontinued sildenafil administer 30 minutes to 4 hours before activity Discontinued Reason: Doctor's Order 50 mg PO DAILY 14 days PRN 14 tabs 0RF sexual activity Coding Level of Care Code Est Pt Prev Care >65y(04798) Diagnoses Physical exam Z00.00 Vitamin D deficiency E55.9 Erectile dysfunction N52.9
[2023-09-05 07:39] VITALS: BP 124/70; PULSE 76; O2SAT 98; BMI 28.8
== END 2023-09-05 08:06 | disposition home or self-care (01) ==
PROVIDERS: Visit Provider Nurse Practitioner Family
DX: Z00.00 Encounter for general adult medical examination without abnormal findings (principal); E55.9 Vitamin D deficiency, unspecified; N52.9 Male erectile dysfunction, unspecified
CPT/HCPCS: 99397

== ENCOUNTER 2023-10-28 10:03 | Outpatient (REF) | payer MEDICARE, SELFPAY ==
[2023-10-28 13:12] LABS: MANUAL DIFF FLAG NO
[2023-10-28 13:23] LABS: Basophils Absolute Auto 0.1 X10*3/uL (0.0-0.2); Basophils Percent Auto 1.1 % (0-2); Eosinophils Absolute Auto 0.1 X10*3/uL (0.0-0.4); Eosinophils Percent Auto 1.9 % (0-4); Hemoglobin 14.8 g/dl (14.0-18.0); Imm Gran Abs Auto 0.01 X10*3/uL (0.00-0.03); Imm Gran Pct Auto 0.1 % (0.0-0.4); Lymphocytes Absolute Auto 1.5 X10*3/uL (1.2-4.9); Lymphocytes Percent Auto 20.2 % (20-40); Mean Corpuscular HGB Conc 35.2 g/dl (31.0-36.0); Mean Corpuscular Hemoglobin 32.2 pg (27.0-33.0); Mean Corpuscular Volume 91.5 fL (80.0-98.0); Mean Platelet Volume 11.1 fL (9.4-12.4); Monocytes Absolute Auto 0.6 X10*3/uL (0.1-1.2); Monocytes Percent Auto 7.4 % (2-11); Neutrophils Absolute Auto 5.2 x10*3/uL (2.0-8.3); Neutrophils Percent Auto 69.3 % (45-73); Platelet Count 211 X10*3/uL (160-400); Red Blood Count 4.59 X10*6/uL (4.60-5.80); White Blood Count 7.5 X10*3/uL (4.8-10.8)
[2023-10-28 13:54] LABS: Appearance Urine Clear; Color Urine Yellow; Glucose Urine UA Negative (Negative); Leukocyte Esterase Urine Negative (Negative); Nitrite Urine Negative (Negative); PH 5.5 (5.0-9.0); Specific Gravity - Urine 1.015 (1.005-1.025); Urine Blood Negative (Negative); Urine Ketones Negative (Negative); Urine Protein Negative (Neg-Trace)
[2023-10-28 14:26] LABS: Prostate Specific Antigen Scr 1.19 ng/mL (<0.05-4.0)
[2023-10-28 14:31] LABS: Alanine Aminotransferase 31 U/L (0-40); Albumin Level 4.7 g/dL (3.5-5.0); Alkaline Phosphatase 89 U/L (39-117); Anion Gap 14 (12-20); Aspartate Amino Transferase 25 U/L (5-37); Bilirubin Total 0.8 mg/dL (0.0-1.0); Blood Urea Nitrogen 14 mg/dL (9-16); Calcium 9.5 mg/dL (8.4-10.2); Carbon Dioxide 27 mmol/L (22-29); Chloride 103 mmol/L (96-108); Cholesterol 157 mg/dL (<200); Estimated Glomerular Filt Rate > 60; Glucose Fasting 93 mg/dL (60-99); HDL Cholesterol 65 mg/dL (>40); LDL Cholesterol Calculated 75 mg/dL (<100); Potassium 4.4 mmol/L (3.3-5.1); Sodium 140 mmol/L (135-145); Total Protein 7.2 g/dL (6.5-8.0); Triglycerides 89 mg/dL (<150)
[2023-10-28 14:34] LABS: TSH reflex Free T4 1.14 uIU/mL (0.32-4.0); Vitamin D 25-OH Total 41.3 ng/mL (>30)
== END 2023-10-28 10:04 | disposition home or self-care (01) ==
LOC: HO.HMGCLDS 10:03
PROVIDERS: PCP Nurse Practitioner Family; Visit Provider Nurse Practitioner Family
DX: Z00.00 Encounter for general adult medical examination without abnormal findings (principal); E55.9 Vitamin D deficiency, unspecified; Z12.5 Encounter for screening for malignant neoplasm of prostate
CPT/HCPCS: 36415; 80053; 80061; 81003; 82306; 84153; 84443; 85025

== ENCOUNTER 2024-03-14 09:54 | Outpatient (AMB) | payer MEDICARE, SELFPAY ==
[2024-03-14 10:03] VITALS: BP 130/74; PULSE 64; O2SAT 98; BMI 28.1
--- NOTE | 2024-03-14 10:03 | MHC.OFFVIS ---
Vital Signs 03/14/24 10:03 Height 5 ft 11 in Weight 201 lb 11.567 oz BMI 28.1 BP 130/74 Blood Pressure Location Lt brachial Position Sitting Pulse 64 Pulse Source Pulse Oximeter Pulse Oximetry (%) 98 Oxygen Delivery Method Room Air Intake Visit Reasons: increased shortness of breath Intake Note: pt is here for a same day appt. he has been noticing some shortness of breath with exertion, mostly stairs and carrying things. [employer] In[employer] Advanced Required: No Allergies No Known Allergies [No Known Allergies*] Allergy (Verified 03/14/24 10:23) Medication List - Last Reconciled 03/14/24 by Apoorva Gage MD clindamycin phosphate 1% topical BID PRN halobetasol propionate 0.05% appl topical hydrochlorothiazide 25 mg PO DAILY losartan 100 mg PO DAILY multivitamin 1 tab PO DAILY rosuvastatin 5 mg PO DAILY tadalafil (Cialis) 10 mg PO DAILY PRN Do you need a note to return to daycare/school/sports/work: No HPI HPI increased shortness of breath: Details: 68 YEARS OLD VERY PLEASANT GENTLEMAN COMES FOR FOLLOW-UP AFTER ABOUT 8 MONTHS. LATELY HE HAS EXPERIENCED, SOME TIGHT FEELING IN THE CHEST AND INCREASED SHORTNESS OF BREATH ON WALKING UP AND DOWN STAIRS. THIS IS HAPPENING WITHOUT ANY CHEST INFECTION. HE HAD OLD SEREVENT INHALER, AND USED A FEW TIMES, FEELING DEFINITELY IMPROVED AFTER THAT. HE SAY IS WHEN HE USE SEREVENT HE WAS ABLE TO WALK UP AND DOWN STAIRS WITHOUT GETTING SHORT OF BREATH. HE DENIES ANY EPISODES OF COUGH OR WHEEZING. [facility] Medical History Pulmonary nodules Bronchitis LUCINA on CPAP Pneumonia Mild reactive airways disease Cough Tubular adenoma of colon Erectile dysfunction Nocturia Sleep apnea COPD (chronic obstructive pulmonary disease) HTN (hypertension) Heart murmur Surgical History S/P lobectomy of lung Family History Father No problems noted. Mother Cancer Social History Housing: House Patient Tobacco Use Status: Former Tobacco user e-Cigarette/Vaping Use: Never Used service: No Current occupational status: employed Cognitive needs: No Hearing needs: No Vision needs: Yes Review of Systems Const All systems reviewed & are unremarkable except as noted in HPI and below Eyes Reports no additional complaints ENT Reports no additional complaints Card Denies chest pain, Denies irregular heart rhythm and Denies leg edema Resp Reports as per HPI GI Reports no additional complaints Reports erectile dysfunction Musc Reports no additional complaints Skin/Breast Reports system reviewed and no additional complaints, except as documented Neuro Reports no additional complaints Psych Reports no additional complaints Physical Exam Vital Signs: Last Vital Signs Pulse 64 03/14/24 10:03 BP 130/74 03/14/24 10:03 Pulse Ox 98 03/14/24 10:03 Oxygen Delivery Method Room Air 03/14/24 10:03 BMI result Body Mass Index 28.1 Const General: healthy appearing, comfortable, no acute distress, alert and awake Orientation/consciousness: patient oriented x3 HEENT Head: Yes normal to inspection General nose exam: No nasal polyps present and No nasal discharge present Face and sinus: Yes sinuses nontender Mouth: oropharynx normal Throat: Yes posterior oropharynx normal Eyes General: appearance normal, both eyes and all related structures Neck Neck: Yes normal visual inspection, Yes no lymphadenopathy, Yes trachea midline and Yes no JVD Thyroid: Thyroid normal Chest Chest palpation & inspection: normal inspection of the chest, normal palpation of entire chest wall and no tenderness Resp Other: Percussion note is resonant, has good breath sounds on both sides. The breath sounds over the lower lobe areas are somewhat diminished with a harsh character. But no definite wheezes. Cardio Palpation: normal PMI Rate: regular rate Rhythm: regular rhythm Heart sounds: no gallops and no murmurs GI Palpation (GI): Soft to palpation, nontender, No hepatosplenomegaly present and no masses Auscultation: normal bowel sounds Back/Spine/Pelvis Thoracic/Lumbar Spine: thoracic and lumbar spine normal to inspection Skin General skin exam: no rashes or lesions noted Neuro General: patient oriented x3 and no focal motor deficits Cranial nerves: Yes CN's II-XII intact bilaterally Extrem General: Yes normal to inspection, Yes no clubbing, cyanosis or edema and Yes no calf tenderness Psych Appearance: grossly normal and well kempt Speech and movement: Normal speech and movement present Office Procedures Spirometry Testing Spirometry Comments: Spirometry done in the office, Dr. Gage has the results results scanned to her chart. [id number]- Spirometry Results Reviewed Results Reviewed: SPIROMETRY Assessment & Plan Assessment & Plan (1) LUCINA on CPAP: Comment: PATIENT DOES HAVE HISTORY OF OBSTRUCTIVE SLEEP APNEA, FOR THE PAST MANY YEARS. AND HE IS USING CPAP EVERY NIGHT, SLEEPS VERY GOOD. NO ISSUES RELATED TO THE MASK OR CPAP DEVICE AT THIS TIME. Code(s): G47.33 - Obstructive sleep apnea (adult) (pediatric); Z99.89 - Dependence on other enabling machines and devices Category: Medical Plan: CONTINUE TO USE THE CPAP DAILY. (2) COPD (chronic obstructive pulmonary disease): Comment: He has past history of smoking that he quit about 12-13 years ago. Has been treated for mild COPD with albuterol HFA 2 puffs Q 4-6 hours only p.r.n.. HE FEELS BETTER WHEN HE USES A LONG-ACTING BRONCHODILATOR, SUCH SEREVENT. Code(s): J44.9 - Chronic obstructive pulmonary disease, unspecified Category: Medical Plan: SPIROMETRY PERFORMED IN THE OFFICE ENDED DOES SHOW MILD OBSTRUCTIVE AIRWAY DISORDER. SYMPTOMATICALLY HE FEELS MUCH BETTER WHEN HE USES A LONG-ACTING BRONCHODILATOR. I THINK HE WILL DO BETTER ON A LOW-DOSE COMBINATION OF FLUTICASONE AND SALMETEROL , IN THE PAST HE HAS USED FLOVENT AND SEREVENT WITH GOOD EFFECT. SO I WILL PRESCRIBE WIXELA 250-50 1 INHALATION B.I.D.. IF ANY INSURANCE ISSUE THEN THIS WILL BE CHANGED TO AN OTHER APPROPRIATE ALTERNATIVE. Orders: Orders AMB Spirometry Testing Today J44.9 - Chronic obstructive pulmonary disease, unspecified Medications: New fluticasone propion-salmeterol 250-50 mcg/dose (Wixela Inhub) 1 inh inhalation Q12H 30 days 60 ea 5RF COPD Coding Level of Care Code Est Pt Level 3 (02095) Diagnoses LUCINA on CPAP G47.33; Z99.89 COPD (chronic obstructive pulmonary disease) J44.9 CPT Codes Spirometry - CPT: 20371- Spirometry ([id number])
== END 2024-03-14 10:43 | disposition home or self-care (01) ==
PROVIDERS: PCP Nurse Practitioner Family; Visit Provider Internal Medicine
DX: G47.33 Obstructive sleep apnea (adult) (pediatric) (principal); Z99.89 Dependence on other enabling machines and devices; J44.9 Chronic obstructive pulmonary disease, unspecified
CPT/HCPCS: 94010; 99213

== ENCOUNTER → 2024-03-14 09:54 | Outpatient (BNVA) | payer MEDICARE, SELFPAY | PROVIDERS: PCP Nurse Practitioner Family; Visit Provider Internal Medicine | DX: J44.9 Chronic obstructive pulmonary disease, unspecified (principal); G47.33 Obstructive sleep apnea (adult) (pediatric); Z99.89 Dependence on other enabling machines and devices | CPT/HCPCS: 94010; 99212 ==

== ENCOUNTER 2024-05-15 13:22 | Outpatient (AMB) | payer MEDICARE, SELFPAY ==
--- NOTE | 2024-05-15 13:24 | A.OFFVIS_ITS ---
Vital Signs 05/15/24 13:25 Weight 197 lb 5.019 oz BP 106/64 Blood Pressure Location Lt brachial Position Sitting Pulse 107 H Pulse Source Pulse Oximeter Pulse Oximetry (%) 97 Oxygen Delivery Method Room Air Intake Visit Reasons: Shortness of breath Allergies No Known Allergies [No Known Allergies*] Allergy (Verified 05/15/24 13:38) Medication List - Last Reconciled 05/15/24 by Apoorva Gage MD clindamycin phosphate 1% topical BID PRN fluticasone propion-salmeterol 250-50 mcg/dose (Wixela Inhub) 1 inh inhalation Q12H 30 days halobetasol propionate 0.05% appl topical hydrochlorothiazide 25 mg PO DAILY losartan 100 mg PO DAILY multivitamin 1 tab PO DAILY rosuvastatin 5 mg PO DAILY tadalafil (Cialis) 10 mg PO DAILY PRN Do you need a note to return to daycare/school/sports/work: No HPI HPI Shortness of breath: Details: Bernabe is back for follow-up. Since he is using Wixela 250-50 b.i.d. his breathing has been much better. He can walk longer distance, At home also stays free of cough or shortness of breath. For his obstructive sleep apnea his current CPAP device which is only about 1-year-old is working well. He has no complaints. Overall doing very well. [facility] Medical History Pulmonary nodules Bronchitis LUCINA on CPAP Pneumonia Mild reactive airways disease Cough Tubular adenoma of colon Erectile dysfunction Nocturia Sleep apnea COPD (chronic obstructive pulmonary disease) HTN (hypertension) Heart murmur Surgical History S/P lobectomy of lung Family History Father No problems noted. Mother Cancer Social History Housing: House Patient Tobacco Use Status: Former Tobacco user e-Cigarette/Vaping Use: Never Used service: No Current occupational status: employed Cognitive needs: No Hearing needs: No Vision needs: Yes Review of Systems Const All systems reviewed & are unremarkable except as noted in HPI and below Eyes Reports no additional complaints ENT Reports no additional complaints Card Denies chest pain, Denies irregular heart rhythm and Denies leg edema Resp Reports as per HPI GI Reports no additional complaints Reports erectile dysfunction Musc Reports no additional complaints Skin/Breast Reports system reviewed and no additional complaints, except as documented Neuro Reports no additional complaints Psych Reports no additional complaints Physical Exam Vital Signs: Last Vital Signs Pulse 107 H 05/15/24 13:25 BP 106/64 05/15/24 13:25 Pulse Ox 97 05/15/24 13:25 Oxygen Delivery Method Room Air 05/15/24 13:25 Const General: healthy appearing, comfortable, no acute distress, alert and awake Orientation/consciousness: patient oriented x3 HEENT Head: Yes normal to inspection General nose exam: No nasal polyps present and No nasal discharge present Face and sinus: Yes sinuses nontender Mouth: oropharynx normal Throat: Yes posterior oropharynx normal Eyes General: appearance normal, both eyes and all related structures Neck Neck: Yes normal visual inspection, Yes no lymphadenopathy, Yes trachea midline and Yes no JVD Thyroid: Thyroid normal Chest Chest palpation & inspection: normal inspection of the chest, normal palpation of entire chest wall and no tenderness Resp Other: Percussion note is resonant, has good breath sounds on both sides. The breath sounds over the lower lobe areas are somewhat diminished . Breath sounds are very clear and no wheezes or rhonchi are heard. Cardio Palpation: normal PMI Rate: regular rate Rhythm: regular rhythm Heart sounds: no gallops and no murmurs GI Palpation (GI): Soft to palpation, nontender, No hepatosplenomegaly present and no masses Auscultation: normal bowel sounds Back/Spine/Pelvis Thoracic/Lumbar Spine: thoracic and lumbar spine normal to inspection Skin General skin exam: no rashes or lesions noted Neuro General: patient oriented x3 and no focal motor deficits Cranial nerves: Yes CN's II-XII intact bilaterally Extrem General: Yes normal to inspection, Yes no clubbing, cyanosis or edema and Yes no calf tenderness Psych Appearance: grossly normal and well kempt Speech and movement: Normal speech and movement present Assessment & Plan Assessment & Plan (1) COPD (chronic obstructive pulmonary disease): Comment: He has past history of smoking that he quit about 12-13 years ago. Has been treated for mild COPD with albuterol HFA 2 puffs Q 4-6 hours only p.r.n.. HE FEELS BETTER WHEN HE USES A LONG-ACTING BRONCHODILATOR, SUCH SEREVENT. At present he is doing very well with the Wixela 250 -50 b.i.d. Code(s): J44.9 - Chronic obstructive pulmonary disease, unspecified Category: Medical Plan: Advised to continue using Wixela 250-50 1 inhalation b.i.d.. And when the symptoms are fully controlled and he has very little cough he may cut it down to once a day. Use albuterol HFA 2 puffs Q 4-6 hours only p.r.n. (2) LUCINA on CPAP: Comment: PATIENT DOES HAVE HISTORY OF OBSTRUCTIVE SLEEP APNEA, FOR THE PAST MANY YEARS. AND HE IS USING CPAP EVERY NIGHT, SLEEPS VERY GOOD. NO ISSUES RELATED TO THE MASK OR CPAP DEVICE AT THIS TIME. Code(s): G47.33 - Obstructive sleep apnea (adult) (pediatric); Z99.89 - Dependence on other enabling machines and devices Category: Medical Plan: Advised to continue using the CPAP every night. If he needs any order for supplies will be glad to send it to [facility]. Recheck Q 6 months. Coding Level of Care Code Est Pt Level 3 (36359) Diagnoses COPD (chronic obstructive pulmonary disease) J44.9 LUCINA on CPAP G47.33; Z99.89
[2024-05-15 13:25] VITALS: BP 106/64; PULSE 107; O2SAT 97
== END 2024-05-15 13:39 | disposition home or self-care (01) ==
PROVIDERS: PCP Nurse Practitioner Family; Visit Provider Internal Medicine
DX: J44.9 Chronic obstructive pulmonary disease, unspecified (principal); G47.33 Obstructive sleep apnea (adult) (pediatric); Z99.89 Dependence on other enabling machines and devices
CPT/HCPCS: 99213

== ENCOUNTER → 2024-05-15 13:22 | Outpatient (BNVA) | payer MEDICARE, SELFPAY | PROVIDERS: PCP Nurse Practitioner Family; Visit Provider Internal Medicine | DX: J44.9 Chronic obstructive pulmonary disease, unspecified (principal); G47.33 Obstructive sleep apnea (adult) (pediatric); Z99.89 Dependence on other enabling machines and devices | CPT/HCPCS: 99212 ==

== ENCOUNTER 2024-09-25 10:24 | Outpatient (REF) | payer MEDICARE, SELFPAY ==
--- OUTSIDE RECORDS SUMMARY | 2024-09-25 11:19 | XMS_ITS | Patient Health Record ---
Author Organization [facility] Address [address] [place] [address] Care Team Providers Care Production Officer Name Role Phone SANDIECarla JOSE J Primary Care Provider Maren e Cameron Garza Unavailable [phone] ALLERGIES No Known Allergies REASON FOR REFERRAL No Information MEDICATIONS Medication SIG (Take, Route, Frequency, Duration) Notes Start Date End Date Status Qvar 80 MCG/ACT 1 puff Inhalation Twice a day/prn Active Multivitamin Active hydroCHLOROthiazide 25 MG 1 tablet in th e morning Orally Once a day for 30 day(s) Active Rosuvastatin Calcium 5 MG 1 tablet Orall y Once a day for 30 day(s) Active Losartan Potassium-HCTZ 100- 25 MG 1 tablet Orally Once a day Active IMMUNIZATIONS Vaccine Route Administration Date Status Comme nts Influenza Unknown 06/15/2022 Administered Influenza Unknown 09/08/2018 Refused SOCIAL HISTORY Sex Assigned At : Social History Observation Description Sex Assigned At Unknown Alcohol Screen Question Answer Notes Did you have a drink contain ing alcohol in the past year? Yes How often did you have a dri nk containing alcohol in the past year? 2 to 4 times a month (2 points) How many drinks did you have on a typical day when you were drinking in the past year? 1 or 2 drinks (0 point) How often did you have 6 or more drinks on one occasion in the past year? Never (0 point) Points 2 Interpretation Negative PROBLEMS Problem Type ICD Code Onset Dates Problem Status W/U Status Risk SNOMED Code Notes Problem Encounter for screening for malignant neoplasm of colon (Z12.11) Active confirmed 586688594 Problem Encounter for screening for malignant neoplasm of rectum (Z12.12) Active confirmed Screening fo r malignant neoplasm of rectum (033553125) Problem Preprocedural examination (Z01.818) Active confirmed 89882000 Problem Hx of adenomatous colonic polyps (Z86.010) Active confirmed 895167414 Problem Pre-procedural examination (Z01.818) Active confirmed 361119954390142 Problem History of adenomatous polyp of colon (Z86.010) Active confirmed 832657396 Problem Colon cancer screening (Z12.11) Active confirmed 113851269 Problem Diverticulosis of large intestine without perforation or abscess without bleeding (K57.30) Active confirmed Diverticul ar disease of colon (043280454) PLAN OF TREATMENT Pending Test Test Name Order Date Pathology 11/01/2022 Future Test Test Name Order Date COLONOSCOPY 09/24/2016 COLONOSCOPY 09/08/2018 COLONOSCOPY 09/01/2022 Insurance Providers Payer Name Payer Address Payer Phone Subscriber Number Group Number Insured Name Patient Relationship to Insured Coverage Start Date Coverage End Date [facility] [address] [place], [place] [id number] CAMERON CEDILLO Self - patient is the insured MEDICAL (GENERAL) HISTORY Medical History History ICD Code Hypertension COPD Denies MD,DM,CVA,Lung disease,renal dise ase Sleep apnea Screening colonoscopy in December of 2016 with multiple tubular adenomas removed. One was nearly 2 cm in size. A polyp in the distal rectum was a tubular adenoma and was about 1.5 cm in size--this had evidence of high-grade dysplasia. Colonoscopy in January of 2019 revealed multiple small tubular adenomas that were removed Lung cancer as below Surgical History Surgery Date(Month/Year) 2019 Right upper lobectomy f or small cancer found on a screening CT scan--Dr. Husain
--- OUTSIDE RECORDS SUMMARY | 2024-09-25 11:19 | XMS_ITS | Clinical Summary ---
Author Organization [facility] Address [address] [place] [address] Phone Care Team Providers Care Pressure Steamer Tender Name Role Phone Eb Crowell NP Primary Care Provider Allergies No known active allergies Medications Medication Sig Dispensed Refills Start Date End Date Status hydroCHLOROthiazide (HYDRODIURIL) 25 mg tablet Take 1 tablet (25 mg total) by mouth 1 (one) time each day. 07/29/2023 Active losartan (COZAAR) 100 mg tablet Take 1 tablet (100 mg total) by mouth 1 (one) time each day. 11/23/2023 Active rosuvastatin (CRESTOR) 5 mg tablet Take 1 tablet (5 mg total) by mouth 1 (one) time each day. Active fluticasone-salmeterol (ADVAIR DISKUS) 250-50 mcg/dose diskus inhaler Inhale 1 puff by mouth 1 (one) time each day. 07/12/2024 Active Active Problems Problem Noted Date Diagnosed Date Multiple pulmonary nodules 09/06/2024 History of lung cancer 09/05/2024 Assessment & Plan (09/06/2024 10:17 AM EST): Mr. Cedillo is a 69 y.o. 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 The patient's most recent surveillance chest CT scan performed on August 14, 2024 shows no new, or worsening, pulmonary nodule or thoracic adenopathy to suggest recurrence or new disease. He has several stable subcentimeter pulmonary nodules including a 3 mm right lower lobe and 4 mm right lower lobe pulmonary nodule. Will continue with routine chest CT surveillance with the next chest CT due July 2025. Will see patient in the office after that next scan. Encounters Date Type Department Care Team Description 09/06/2024 9:45 AM EST Office Visit Thoracic Surgery - [place] [address] [phone] Jeri Toro PA History of lung cancer (Primary Dx); Multiple pulmonary nodules 08/14/2024 4:30 PM EST - 08/14/2024 11:59 PM EST Hospital Encounter [facility] CT Scan [address] [place] [phone] H/O malignant neoplasm of lung Discharge Disposition: Home or Self Care 08/14/2024 4:00 PM EST - 08/14/2024 11:59 PM EST Hospital Encounter [facility] CT Scan [address] [place] [phone] Discharge Disposition: Home or Self Care from Last 3 Months Surgical History Surgery Date Site/Laterality Comments LUNG LOBECTOMY 08/17/2020 Right RUL Medical History Medical History Date Comments Bronchitis COPD (chronic obstructive pulmonary disease) (CM S/HCC) Cough Erectile dysfunction Hypertension Heart murmur Essential hypertension Mild reactive airways disease Nocturia LUCINA on CPAP Pneumonia Sleep apnea Tubular adenoma of colon Vitamin D deficiency Family History Medical History Relation Name Comments Other cancer Mother Relation Name Status Comments Father Mother Social History Tobacco Use Types Packs/Day Years Used Date Smoking Tobacco: Former Cigarettes Q uit: 04/02/2007 Smokeless Tobacco: Never Tobacco Cessation:Counseling Given: Not Answered Alcohol Use Standard Drinks/Week Comments Yes 0 (1 standard drink = 0.6 oz pur e alcohol) Sex and Gender Information Value Date Recorded Sex Assigned at Not on file Gender Identity Not on file Sexual Orientation Not on file Job Start Date Occupation Industry Not on file Not on file Not on file Obstetrics History Last Filed Vital Signs Vital Sign Reading Time Taken Comments Blood Pressure 146/87 09/06/2024 9:58 AM EST Pulse 66 09/06/2024 9:58 AM EST Temperature 37 ??C (98.6 ??F) 09/06/2024 9:58 AM EST Respiratory Rate 14 09/06/2024 9:58 AM EST Oxygen Saturation 99% 09/06/2024 9:58 AM EST Inhaled Oxygen Concentration - - Weight 89.4 kg (197 lb) 09/06/2024 9:58 AM EST Height 180.3 cm (5' 11 ) 09/06/2024 9:58 AM EST Body Mass Index 27.48 09/06/2024 9:58 AM EST Plan of Treatment Health Maintenance Due Date Last Done Comments Zoster Vaccines (1 of 2) 1975 Abdominal Aortic Aneurysm (AAA) Screen 07/27/2022 Cholesterol Screening (Lipid Panel) 07/27/2022 Colorectal Cancer Screening: Colonoscopy 07/27/2022 Depression Screening 07/27/2022 Falls Risk Assessment 07/27/2022 Hepatitis C Screening 07/27/2022 Medicare Annual Wellness Visit 07/27/2022 Social Influencers of Health Screening 07/27/2022 Hypertension/CHF/CAD Annual BMP Blood Test 08/14/2022 COVID-19 Vaccine ( season) 2024 03/18/2024, 06/26/2022, 08/01/2021, Additional history exists DTaP,Tdap,and Td Vaccines (2 - Td or Tdap) 05/03/2028 05/03/2018 RSV Immunization Patients 60+ Years Old Completed 07/30/2023 Pneumococcal Vaccine: 65+ Years Completed 09/08/2023, 08/16/2022 Influenza Vaccine Completed 07/12/2024, , 08/07/2022, Additional history exists HIB Vaccines Aged Out No longer eligi ble based on patient's age to complete this topic HPV Vaccines Aged Out No longer eligi ble based on patient's age to complete this topic Hepatitis A Vaccines Aged Out No long er eligible based on patient's age to complete this topic Hepatitis B Vaccines Aged Out No long er eligible based on patient's age to complete this topic IPV Vaccines Aged Out No longer eligi ble based on patient's age to complete this topic MMR Vaccines Aged Out No longer eligi ble based on patient's age to complete this topic Meningococcal ACWY Vaccine Aged Out N o longer eligible based on patient's age to complete this topic RSV Immunization Patients Under 20 months Aged Out No longer eligible based on patient's age to complete this topic Varicella Vaccines Aged Out No longer eligible based on patient's age to complete this topic Procedures Procedure Name Priority Date/Time Associated Diagnosis Comments CT CHEST WO CONTRAST Routine 08/14/2024 4:43 PM EST H/O malignant neoplasm of lung from Last 3 Months Results * CT Chest wo Contrast (08/14/2024 4:43 PM EST) Anatomical Region Laterality Modality Body Computed Tomogra phy 08/16/2024 10:3 3 AM EST Impressions 08/16/2024 10:46 AM EST Stable pulmonary nodules. No new nodules seen. A right upper lobectomy is again noted. No abnormal mediastinal or axillary lymphadenopathy seen. -------- FINAL REPORT -------- Dictated By: Yuan Scruggs Dictated Date: 08/16/2024 10:33 ET Assigned Physician: Yuan Scruggs Reviewed and Electronically Signed By: uYan Scruggs Signed Date: 08/16/2024 10:46 ET Workstation ID: [id number] Transcribed By: Self Edit Transcribed Date: 08/16/2024 10:33 ET Narrative 08/16/2024 10:46 AM EST EXAMINATION: CT chest without contrast. CLINICAL INDICATION: Non-small cell lung cancer, monitoring. COMPARISON: CT chest 09/20/2023 and 09/09/2022.. TECHNIQUE: 2.5 mm thin axial and reformatted 3 mm thin sagittal and coronal images of chest were obtained. Scanner: ShapewayspePlum 64 slice VCT Dose reduction technique: ASIR (Adaptive statistical iterative reconstruction) and/or AEC (automated exposure control) Dose: total exam DLP 83 mGy/cm. FINDINGS: LUNGS: The lungs are expanded with paraseptal emphysema. Lungs are clear of acute pneumonic process. Right upper lobectomy changes are noted with hyperexpansion right lower lobe. There is a 3 mm nodule right lower lobe lateral segment image 57/3, 4 mm nodule right lower lobe medially on axial image 46/3. There are no new nodules visualized. Pleura: There is no pleural effusion, thickening or calcification. Mediastinum: Heart size there is normal. There is mild prominence of ascending aorta measuring 4.1 x 4.2 cm. No pericardial effusion seen. There is mild coronary artery calcification. No abnormal size mediastinal or hilar lymph nodes seen. Thyroid lobes are symmetrical and normal. The central trachea and the bronchi are widely patent. Axilla: Small shotty lymph nodes seen in bilateral axilla, stable. The chest wall is unremarkable. Upper abdomen: Liver is homogeneous in density with a small 8 mm hypodensity right hepatic lobe, stable. Rest of liver, spleen, adrenal glands, pancreas and gallbladder is unremarkable. No aggressive osseous structures: No aggressive lytic or sclerotic process seen. Procedure Note Yuan Scruggs MD - 08/16/2024 EXAMINATION: CT chest without contrast. CLINICAL INDICATION: Non-small cell lung cancer, monitoring. COMPARISON: CT chest 09/20/2023 and 09/09/2022.. TECHNIQUE: 2.5 mm thin axial and reformatted 3 mm thin sagittal andcoronal images of chest were obtained. Scanner: My Visual Brief 64 sliceVCT Dose reduction technique: ASIR (Adaptive statistical iterativereconstruction) and/or AEC (automated exposure control) Dose: total exam DLP 83 mGy/cm. FINDINGS: LUNGS: The lungs are expanded with paraseptal emphysema. Lungs are clearof acute pneumonic process. Right upper lobectomy changes are noted withhyperexpansion right lower lobe. There is a 3 mm nodule right lower lobelateral segment image 57/3, 4 mm nodule right lower lobe medially on axialimage 46/3. There are no new nodules visualized. Pleura: There is no pleural effusion, thickening or calcification. Mediastinum: Heart size there is normal. There is mild prominence ofascending aorta measuring 4.1 x 4.2 cm. No pericardial effusion seen.There is mild coronary artery calcification. No abnormal size mediastinalor hilar lymph nodes seen. Thyroid lobes are symmetrical and normal. Thecentral trachea and the bronchi are widely patent. Axilla: Small shotty lymph nodes seen in bilateral axilla, stable. Thechest wall is unremarkable. Upper abdomen: Liver is homogeneous in density with a small 8 mmhypodensity right hepatic lobe, stable. Rest of liver, spleen, adrenalglands, pancreas and gallbladder is unremarkable. No aggressive osseousstructures: No aggressive lytic or sclerotic process seen. IMPRESSION: Stable pulmonary nodules. No new nodules seen. A right upper lobectomy isagain noted. No abnormal mediastinal or axillary lymphadenopathy seen. -------- FINAL REPORT -------- Dictated By: Yuan Scruggs Dictated Date: 08/16/2024 10:33 ET Assigned Physician: Yuan Scruggs Reviewed and Electronically Signed By: Yuan Scruggs Signed Date: 08/16/2024 10:46 ET Workstation ID: [id number] Transcribed By: Self Edit Transcribed Date: 08/16/2024 10:33 ET Jeri ROSS IMG CT PROCEDURES from Last 3 Months Care Teams Pressure Steamer Tender Relationship Specialty Start Date End Date Eb Crowell, NABIL [address] [place], [place] PCP - General 02/25/21
--- OUTSIDE RECORDS SUMMARY | 2024-09-25 11:19 | XMS_ITS | Encounter Summary ---
Author Organization [facility] Address [address] [place] [address] Care Team Providers Care Receiving Operator Name Role Phone Jose J Crowell NP Primary Care Provider Reason for Referral * Imaging (Routine) - Pending Review Specialty Diagnoses / Procedures Referred By Gautam ching Referred To Contact Radiology Diagnoses History of lung cancer Multiple pulmonary nodules Procedures CT Chest wo Contrast CT Chest wo Contrast Jeri Toro PA [address] [facility], [address] [address] [facility] [place] Referral ID Status Reason Start Date Expiration Date V isits Requested Visits Authorized [id number] Pending Review 09/06/2024 09/06/2025 1 1 Reason for Visit * Reason Comments Follow-up Chest CT 08/14/24 re view Encounter Details Date Type Department Care Team ([facility] st Contact Info) Description 09/06/2024 9:45 AM EST Office Visit Thoracic Surgery - [place] 299 [facility] [address] [place] [phone] Jeri Toro PA [address] [facility], [address] [place] [phone] History of lung cancer (Primary Dx); Multiple pulmonary nodules Social History Tobacco Use Types Packs/Day Years Used Date Smoking Tobacco: Former Cigarettes Q uit: 04/02/2007 Smokeless Tobacco: Never Alcohol Use Standard Drinks/Week Comments Yes 0 (1 standard drink = 0.6 oz pur e alcohol) Sex and Gender Information Value Date Recorded Sex Assigned at Not on file Gender Identity Not on file Sexual Orientation Not on file Job Start Date Occupation Industry Not on file Not on file Not on file documented as of this encounter Last Filed Vital Signs Vital Sign Reading [...] Mass Index 27.48 09/06/2024 9:58 AM EST documented in this encounter Progress Notes * VANDANA Arita - 09/06/2024 9:45 AM EST Images from the original note were not included. Thoracic Surgery Follow Up Visit Patient name: Bernabe Cedillo : 1955 Date of Visit: September 06, 2024 Care Team PCP: JOSE J CROWELL NP Study Assistant: Dr. Gage Reason for Visit Chief Complaint Patient presents with Follow-up Chest CT 08/14/24 review History of Present Illness Mr. Cedillo is a 69 y.o. 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 The patient presents today after his most recent surveillance chest CT scan. Patient feeling well. Had some issues with chest tightness and congestion a while ago, but was seen by Dr. Gage who put him on a course of Mucinex and started him on an inhaler and he has since felt much improved. Denies any increasing SOB, hemoptysis, unintentional weight loss, or new lumps/bumps concerning for lymphadenopathy. Past Medical History: Diagnosis Date Bronchitis COPD (chronic obstructive pulmonary disease) (CMS/HCC) Cough Erectile dysfunction Essential hypertension Heart murmur Hypertension Mild reactive airways disease Nocturia LUCINA on CPAP Pneumonia Sleep apnea Tubular adenoma of colon Vitamin D deficiency Patient Active Problem List Diagnosis History of lung cancer Multiple pulmonary nodules Past Surgical History: Procedure Laterality Date LUNG LOBECTOMY Right 08/17/2020 RUL No Known Allergies Current Outpatient Medications on File Prior to Visit Medication Sig Dispense Refill fluticasone-salmeterol (ADVAIR DISKUS) 250-50 mcg/dose diskus inhaler Inhale 1 puff by mouth 1 (one) time each day. hydroCHLOROthiazide (HYDRODIURIL) 25 mg tablet Take 1 tablet (25 mg total) by mouth 1 (one) time each day. losartan (COZAAR) 100 mg tablet Take 1 tablet (100 mg total) by mouth 1 (one) time each day. rosuvastatin (CRESTOR) 5 mg tablet Take 1 tablet (5 mg total) by mouth 1 (one) time each day. No current facility-administered medications on file prior to visit. Social History Tobacco Use Smoking status: Former Current packs/day: 0.00 Types: Cigarettes Quit date: 04/02/2007 Years since quittin.4 Smokeless tobacco: Never Vaping Use Vaping status: Never Used Substance Use Topics Alcohol use: Yes Drug use: Never Social History Social History Narrative Not on file Review of Systems Review of Systems Constitutional: Negative for decreased appetite, fever, night sweats and weight loss. HENT: Negative for congestion and hoarse voice. Cardiovascular: Negative for chest pain and palpitations. Respiratory: Negative for cough, hemoptysis, shortness of breath and sputum production. Hematologic/Lymphatic: Negative for adenopathy. Skin: Negative for rash. Gastrointestinal: Negative for abdominal pain and nausea. Genitourinary: Negative for dysuria. Neurological: Negative for light-headedness. Physical Exam Vitals: 09/06/24 0958 BP: (!) 146/87 BP Location: Left arm Patient Position: Sitting BP Cuff Size: Large adult Pulse: 66 Resp: 14 Temp: 37 ??C (98.6 ??F) SpO2: 99% Weight: 89.4 kg (197 lb) Height: 1.803 m (71 ) Physical Exam Vitals reviewed. Constitutional: General: He is awake. He is not in acute distress. Appearance: He is well-developed. He is not ill-appearing. HENT: Head: Normocephalic and atraumatic. Mouth/Throat: Mouth: Mucous membranes are moist. Eyes: General: Lids are normal. No scleral icterus. Cardiovascular: Rate and Rhythm: Normal rate and regular rhythm. Heart sounds: No murmur heard. Pulmonary: Effort: Pulmonary effort is normal. No accessory muscle usage or respiratory distress. Breath sounds: No wheezing, rhonchi or rales. Comments: CTA B Chest: Comments: Multiple right sided chest incisions are well healed without nodularity. Lymphadenopathy: Cervical: No cervical adenopathy. Upper Body: Right upper body: No supraclavicular adenopathy. Left upper body: No supraclavicular adenopathy. Skin: General: Skin is warm and dry. Neurological: Mental Status: He is alert and oriented to person, place, and time. Psychiatric: Mood and Affect: Mood normal. Behavior: Behavior normal. Behavior is cooperative. Radiology I personally viewed the patient's current and past imaging studies, in addition to reviewing the dictated report from the reading radiologist. CT Chest wo Contrast Narrative: EXAMINATION: CT chest without contrast. CLINICAL INDICATION: Non-small cell lung cancer, monitoring. COMPARISON: CT chest 09/20/2023 and 09/09/2022.. TECHNIQUE: 2.5 mm thin axial and reformatted 3 mm thin sagittal and coronal images of chest were obtained. Scanner: SkyGrid 64 slice VCT Dose reduction technique: ASIR [...] nodule right lower lobe medially on axial image46/3. There are no new nodules visualized. Pleura: [...] glands, pancreas and gallbladder is unremarkable. No aggressiveosseous structures: No aggressive lytic or sclerotic process seen. Impression: Stable pulmonary nodules. No new nodules seen. A right upper lobectomy is again noted. No abnormal mediastinal or axillary lymphadenopathy seen. -------- FINAL REPORT -------- Dictated By: Yuan Scruggs Dictated Date: 08/16/2024 10:33 ET Assigned Physician: Yuan Scruggs Reviewed and Electronically Signed By: Yuan Scruggs Signed Date: 08/16/2024 10:46 ET Workstation ID: [id number] Transcribed By: Self Edit Transcribed Date: 08/16/2024 10:33 ET Assessment and Plan Problem List Items Addressed This Visit History of lung cancer - Primary Mr. Cedillo is a 69 y.o. male [...] next chest CT due July 2025. Will seepatient in the office after that next scan. Relevant Orders CT Chest wo Contrast Multiple pulmonary nodules Relevant Medications fluticasone-salmeterol (ADVAIR DISKUS) 250-50 mcg/dose diskus inhaler Other Relevant Orders CT Chest wo Contrast VANDANA Arita [facility] Thoracic Surgery [address] [place] [address], [address] [place] [phone] * VANDANA Arita - 09/05/2024 11:10 AM ESTAssociated Problem(s): History of lung cancer Mr. Cedillo is a 69 y.o. male [...] next chest CT due July 2025. Will seepatient in the office after that next scan. documented in this encounter Plan of Treatment Scheduled Orders Name Type Priority Associated Diagnoses Orde r Schedule CT Chest wo Contrast Imaging Routine History of lung cancer Multiple pulmonary nodules Expected: 07/29/2025, Expires: 09/06/2025 documented as of this encounter Visit Diagnoses Diagnosis History of lung cancer- Primary Personal history of malignant neoplasm of bronchus and lung Multiple pulmonary nodules Other diseases of lung, not elsewhere classified documented in this encounter Historical Medications * This list may reflect changes made after this encounter. Medication Sig Dispensed Refills Start Date End Date fluticasone-salmeterol (ADVAIR DISKUS) 250-50 mcg/dose diskus inhaler Inhale 1 puff by mouth 1 (one) time each day. 07/12/2024 added in this encounter Care Teams Receiving Operator Relationship Specialty Start Date End Date Jose J Crowell NP [address] [place], [place] PCP - General 02/25/21 documented as of this encounter
[2024-09-25 13:16] LABS: Appearance Urine Turbid; Color Urine Yellow; Glucose Urine UA Negative (Negative); Leukocyte Esterase Urine Negative (Negative); Nitrite Urine Negative (Negative); PH 5.5 (5.0-9.0); Urine Blood Negative (Negative); Urine Ketones Negative (Negative); Urine Protein Negative (Neg-Trace)
[2024-09-25 13:29] LABS: MANUAL DIFF FLAG NO
[2024-09-25 13:34] LABS: Basophils Absolute Auto 0.1 X10*3/uL (0.0-0.2); Basophils Percent Auto 0.9 % (0-2); Eosinophils Absolute Auto 0.1 X10*3/uL (0.0-0.4); Eosinophils Percent Auto 1.7 % (0-4); Hematocrit 40.1 % (42.0-52.0); Hemoglobin 13.9 g/dl (14.0-18.0); Imm Gran Abs Auto 0.03 X10*3/uL (0.00-0.03); Imm Gran Pct Auto 0.4 % (0.0-0.4); Lymphocytes Absolute Auto 1.6 X10*3/uL (1.2-4.9); Lymphocytes Percent Auto 19.8 % (20-40); Mean Corpuscular HGB Conc 34.7 g/dl (31.0-36.0); Mean Corpuscular Hemoglobin 32.2 pg (27.0-33.0); Mean Corpuscular Volume 92.8 fL (80.0-98.0); Mean Platelet Volume 11.1 fL (9.4-12.4); Monocytes Absolute Auto 0.7 X10*3/uL (0.1-1.2); Monocytes Percent Auto 8.5 % (2-11); Neutrophils Absolute Auto 5.4 x10*3/uL (2.0-8.3); Neutrophils Percent Auto 68.7 % (45-73); Platelet Count 200 X10*3/uL (160-400); Red Blood Count 4.32 X10*6/uL (4.60-5.80); White Blood Count 7.9 X10*3/uL (4.8-10.8)
[2024-09-25 14:18] LABS: Alanine Aminotransferase 30 U/L (0-40); Albumin Level 4.4 g/dL (3.5-5.0); Alkaline Phosphatase 76 U/L (39-117); Anion Gap 12 (12-20); Aspartate Amino Transferase 31 U/L (5-37); Bilirubin Total 0.7 mg/dL (0.0-1.0); Blood Urea Nitrogen 19 mg/dL (9-16); Calcium 9.3 mg/dL (8.4-10.2); Carbon Dioxide 28 mmol/L (22-29); Chloride 101 mmol/L (96-108); Cholesterol 168 mg/dL (<200); Estimated Glomerular Filt Rate > 60; Glucose Fasting 99 mg/dL (60-99); HDL Cholesterol 72 mg/dL (>40); LDL Cholesterol Calculated 86 mg/dL (<100); Sodium 136 mmol/L (135-145); Total Protein 7.1 g/dL (6.5-8.0); Triglycerides 53 mg/dL (<150)
[2024-09-25 14:23] LABS: Prostate Specific Antigen Scr 2.67 ng/mL (<0.05-4.0)
[2024-09-25 14:34] LABS: TSH reflex Free T4 1.29 uIU/mL (0.32-4.0); Vitamin D 25-OH Total 57.3 ng/mL (>30)
== END 2024-09-25 10:25 | disposition home or self-care (01) ==
LOC: HO.HMGCLDS 10:24
PROVIDERS: PCP Nurse Practitioner Family; Visit Provider Nurse Practitioner Family
DX: Z00.00 Encounter for general adult medical examination without abnormal findings (principal); E55.9 Vitamin D deficiency, unspecified; Z12.5 Encounter for screening for malignant neoplasm of prostate
CPT/HCPCS: 36415; 80053; 80061; 81003; 82306; 84153; 84443; 85025

== ENCOUNTER 2024-10-02 07:20 | Outpatient (AMB) | payer MEDICARE, SELFPAY ==
--- OUTSIDE RECORDS SUMMARY | 2024-10-02 07:22 | XMS_ITS | Encounter Summary ---
Author Organization [facility] Address [address] [place] [address] Care Team Providers Care Double Surface Operator Name Role Phone Jose J Crowell NP Primary Care Provider [phone] Reason for Referral * Imaging (Routine) - Pending Review Specialty Diagnoses / Procedures Referred By Gautam ching Referred To Contact Radiology Diagnoses History of lung cancer Multiple pulmonary nodules Procedures CT Chest wo Contrast CT Chest wo Contrast Jeri Toro PA 299 [facility], [address] [address] [facility] Referral ID Status Reason Start Date Expiration Date V isits Requested Visits Authorized [id number] Pending Review 09/06/2024 09/06/2025 1 1 Reason for Visit * Reason Comments Follow-up Chest CT 08/14/24 re view Encounter Details Date Type Department Care Team ([facility] st Contact Info) Description 09/06/2024 9:45 AM EST Office Visit Thoracic Surgery - [place] 299 [facility] [address] [place] [phone] Jeri Toro PA 299 [facility], [address] [place] [phone] History of lung cancer (Primary Dx); Multiple [...] Care Team PCP: JOSE J CROWELL NP Electronic Prepress System Operator: Dr. Gage Reason for Visit Chief Complaint [...] while ago, but was seen by Dr. Ggae who put him on a course of [...] coronal images of chest were obtained. Scanner: GoYoDeo 64 slice VCT Dose reduction technique: ASIR [...] Signed Date: 08/16/2024 10:46 ET Workstation ID: [id number] Transcribed By: Self Edit Transcribed Date: 08/16/2024 [...] Orders CT Chest wo Contrast VANDANA Arita [facility] Thoracic Surgery [address] [place] [address], [address] [place] [phone] * VANDANA Arita - 09/05/2024 11:10 AM [...] 07/12/2024 added in this encounter Care Teams Double Surface Operator Relationship Specialty Start Date End Date Jose J Crowell NP [address] [place], [place] PCP - General 02/25/21 documented as of this encounter
--- OUTSIDE RECORDS SUMMARY | 2024-10-02 07:22 | XMS_ITS | Clinical Summary ---
Author Organization [facility] Address [address] [place] [address] Phone Care Team Providers Care Clerk Checker Name Role Phone Eb Crowell NP Primary [...] AM EST Office Visit Thoracic Surgery - [place] [address] [phone] Jeri Toro PA History of lung cancer (Primary Dx); Multiple pulmonary nodules 08/14/2024 4:30 PM EST - 08/14/2024 11:59 PM EST Hospital Encounter [facility] CT Scan [address] [place] [phone] H/O malignant neoplasm of lung Discharge Disposition: Home or Self Care 08/14/2024 4:00 PM EST - 08/14/2024 11:59 PM EST Hospital Encounter [facility] CT Scan [address] [place] [phone] Discharge Disposition: Home or Self Care from [...] Signed Date: 08/16/2024 10:46 ET Workstation ID: [id number] Transcribed By: Self Edit Transcribed Date: 08/16/2024 10:33 ET Narrative 08/16/2024 10:46 AM EST EXAMINATION: CT chest without contrast. CLINICAL INDICATION: Non-small cell lung cancer, monitoring. COMPARISON: CT chest 09/20/2023 and 09/09/2022.. TECHNIQUE: 2.5 mm thin axial and reformatted 3 mm thin sagittal and coronal images of chest were obtained. Scanner: Fi[employer]peOnline Agility 64 slice VCT Dose reduction technique: ASIR [...] andcoronal images of chest were obtained. Scanner: Nimbus Data 64 sliceVCT Dose reduction technique: ASIR (Adaptive [...] Signed Date: 08/16/2024 10:46 ET Workstation ID: [id number] Transcribed By: Self Edit Transcribed Date: 08/16/2024 10:33 ET Jeri ROSS IMG CT PROCEDURES from Last 3 Months Care Teams Clerk Checker Relationship Specialty Start Date End Date Eb Crowell, NABIL [address] [place], [place] PCP - General 02/25/21
[2024-10-02 07:32] VITALS: BP 112/72; PULSE 66; TEMP 37; O2SAT 98; BMI 27.6
--- NOTE | 2024-10-02 07:32 | MHC.PC.OV ---
Vital Signs 10/02/24 07:32 Height 5 ft 11 in Weight 198 lb BMI 27.6 BP 112/72 Blood Pressure Location Rt brachial Position Sitting Pulse 66 Pulse Source Pulse Oximeter Temp 98.6 F Temp Source Oral Pulse Oximetry (%) 98 Intake Visit Reasons: Annual PE Intake Note: pt is here for annual PE Bootmaker Required: No Accompanied by: Self / Same As Patient Allergies No Known Allergies [No Known Allergies*] Allergy (Verified 10/02/24 07:32) Medication List - Last Reconciled 10/02/24 by Eb Crowell, VISUAL ARTIST- clindamycin phosphate 1% topical BID PRN fluticasone propion-salmeterol 250-50 mcg/dose (Wixela Inhub) 1 inh inhalation Q12H 30 days fluticasone propionate 50 mcg/actuation 1 spray intranasal DAILY 30 days halobetasol propionate 0.05% appl topical hydrochlorothiazide 25 mg PO DAILY losartan 100 mg PO DAILY multivitamin 1 tab PO DAILY rosuvastatin 5 mg PO DAILY tadalafil (Cialis) 10 mg PO DAILY PRN Tobacco use date assessed: 10/02/24 Fall risk assessment: No Falls in past year Last assessed Fall Risk: 10/02/24 Dental Screening Dental Screen Date: 10/02/24 Did you have a dental visit in the last 12 months?: Yes Did you have a dental problem in the last 6 months where you did not have access to dental care?: No Was dental information given to patient?: Patient has dentist HPI Annual PE HPI Details History of Present Illness The patient is a 69-year-old male presenting for a routine physical examination and evaluation of elevated PSA levels. He denies experiencing any new symptoms, including chest pain, shortness of breath, constipation, diarrhea, blood in the stool, or urinary issues. A recent laboratory result indicated slight anemia with a hemoglobin level of 13.9. The patient has a historical increase in PSA velocity from 1.19 in 2023 to 2.67 currently, which warrants further evaluation. He denies any associated urinary symptoms. Additionally, the patient has a history of an enlarged prostate and a systolic heart murmur, for which he has been previously evaluated by cardiology. He follows up regularly with dermatology due to a history of skin cancer and gets yearly CAT scans through pulmonology. His colonoscopy is up to date. Health Maintenance - Routine dermatological evaluations once a year due to history of skin cancer. - Annual CAT scans under pulmonology supervision. - Colonoscopy is current. - Repeat Complete Blood Count (CBC) is planned for future monitoring of anemia. Social History Review of Systems - Cardiovascular: Denies chest pain, shortness of breath. - Gastrointestinal: Denies constipation, diarrhea, blood in the stool. - Genitourinary: Denies any urinary issues. Physical Exam General: Cooperative, healthy appearing, comfortable, no acute distress and well developed Orientation: Patient oriented x3 Limitations: No limitations Head: Normal to inspection Ears: Hearing grossly normal bilaterally Nose: Papular lesion on the external aspect of the left nare Face and sinus: Normal facial exam Eyes: Appearance normal, both eyes and all related structures Neck: Normal visual inspection and Yes full ROM Respiratory: Normal respiratory effort and able to speak in complete sentences. Clear to auscultation bilaterally Cardiovascular: Regular rate and rhythm. Systolic murmur present GI: Normal to inspection. Soft to palpation and nontender Skin: No rashes Neuro: Patient oriented x3 Extremities: Normal to inspection Results - Labs: Hemoglobin 13.9 (indicative of slight anemia). - Tests: PSA increased from 1.19 in 2023 to 2.67 currently. Plan - Repeat echocardiogram to assess systolic murmur. - Referral to urology for evaluation of elevated PSA and enlarged prostate. - Monitoring of anemia with repeat CBC planned. - Dermatology follow-up for papular lesion on left nare. Patient was informed and verbally consented to the use of an ambient scribe for clinic note documentation during this visit. Discussion Notes During the visit, I addressed the increase in PSA levels and discussed the implications of this finding with the patient, emphasizing the urgency of a urology referral for further evaluation of possible prostate pathology. PT has seen cardiology in the past, no longer, echocardiogram to reassess the systolic murmur. We talked about the current status of his anemia and the plan to monitor with repeat blood tests in the coming months. I reiterated the significance of ongoing dermatological surveillance due to his history of skin cancer and noted the routine nature of his pulmonology CAT scans. The patient understood the discussed plans and expressed willingness to follow through with the recommended referrals and tests. Patient Instructions - Schedule and attend the urology appointment as soon as possible for further evaluation of PSA levels and prostate health. - Continue with scheduled dermatology visits for skin checks. - Follow up with the echocardiogram for heart murmur assessment. - Return to the clinic in a few months for repeat blood work to monitor anemia. [facility] Medical History Pulmonary nodules Bronchitis LUCINA on CPAP Pneumonia Mild reactive airways disease Cough Tubular adenoma of colon Erectile dysfunction Nocturia Sleep apnea COPD (chronic obstructive pulmonary disease) HTN (hypertension) Heart murmur Surgical History S/P lobectomy of lung Family History Father No problems noted. Mother Cancer Social History Housing: House Patient Tobacco Use Status: Former Tobacco user e-Cigarette/Vaping Use: Never Used service: No Current occupational status: employed Cognitive needs: No Hearing needs: No Vision needs: Yes Questionnaire PHQ-9 Over the last 2 weeks, how often have you been bothered by any of the following problems? 1. Little interest or pleasure in doing things: not at all 2. Feeling down, depressed, or hopeless: not at all 3. Trouble falling or staying asleep, or sleeping too much: not at all 4. Feeling tired or having little energy: not at all 5. Poor appetite or overeating: not at all 6. Feeling bad about yourself - or that you are a failure or have let yourself or your family down: not at all 7. Trouble concentrating on things, such as reading the newspaper or watching television: not at all 8. Moving or speaking so slowly that other people could have noticed. Or the opposite - being so fidgety or restless that you have been moving around a lot more than usual: not at all 9. Thoughts that you would be better off or of hurting yourself in some way: not at all Total score: 0 Depression Screening Interpretation: Negative Depression Screening Done: Yes 95615 - PHQ-9 Billing: Yes Source: Developed by Drs. Bernabe Dodson, Consuelo Antony, Garth Tollievr and colleagues, with an educational miah from [employer]. Thrive Questionnaire Date Thrive assessed: 10/02/24 I am a: Patient What is your living situation today?: I have a steady place to live Within the past 12 months, did the food you bought not last and you didn't have the money to get more?: Never true Within the past 12 months, did you worry whether your food would run out before you got money to buy more?: Never true Do you have trouble paying for medicines?: No Do you have trouble getting transportation to medical appointments?: No Do you have trouble paying your heating and electricity bill?: No Do you have trouble taking care of your child, family member or friend?: No Do you have trouble with day-to-day activities such as bathing, preparing meals, shopping, managing finances, etc.?: No Are you currently unemployed and looking for a job?: No Are you interested in more education?: I choose not to answer this question Please select the resources that you would like help with: None Currently or been in a relationship where the following occur: No concerns reported THRIVE Score: 0 AUDIT C Alcohol Use Questionnaire (AUDIT-C) 1. How often do you have a drink containing alcohol?: 2-3 times a week 2. How many drinks containing alcohol do you have on a typical day when you are drinking?: 1 or 2 3. How often do you have six or more drinks on one occasion?: Never Total Score: 3 Score Reviewed/Action Taken: Yes MARYAM-7 AMB Questionnaire MARYAM-7 Date MARYAM - 7 assessed: 10/02/24 Feeling nervous, anxious, or on edge: 0 = Not at all Not being able to stop or control worryin = Not at all Worrying too much about different things: 0 = Not at all Trouble relaxin = Not at all Being so restless that it is hard to sit still: 0 = Not at all Becoming easily annoyed or irritable: 0 = Not at all Feeling afraid as if something awful might happen: 0 = Not at all Total MARYAM-7 score (0-4 normal; 5-9 mild; 10-14 moderate; 15-21 severe): 0 Source: Developed by Drs. Bernabe Dodson, Consuelo Antony, Garth Tolliver and colleagues, with an educational miah from [employer]. MARYAM-7 Assessment Billing MARYAM-7 Assessment Tool: MARYAM-7 Assessment 05582 Physical exam (Primary Care) Vital Signs: Last Vital Signs Temp 98.6 F 10/02/24 07:32 Pulse 66 10/02/24 07:32 BP 112/72 10/02/24 07:32 Pulse Ox 98 10/02/24 07:32 BMI result Body Mass Index 27.6 Tobacco/Smoking Status: Tobacco use Status Tobacco use date assessed 10/02/24 10/02/24 07:38 Patient Tobacco Use Status Former Tobacco user 10/02/24 07:38 e-Cigarette/Vaping Use Never Used 10/02/24 07:38 PHQ-9: PHQ-9 Score PHQ-9: Total score 0 10/02/24 07:38 Depression Screening Interpretation: Negative Thrive Assessment: Date of Thrive Assessment Date Thrive assessed 10/02/24 10/02/24 07:38 Currently or been in a relationship where the following occur: No concerns reported Coding Level of Care Code Est Pt Prev Care >65y(34041) Diagnoses Increased prostate specific antigen (PSA) velocity R97.20 Anemia D64.9 Systolic murmur R01.1 Physical exam Z00.00 Additional Codes MARYAM-7 Assessment Billing - MARYAM-7 Assessment Tool: MARYAM-7 Assessment 35063 ([id number]) PHQ-9 - 62280 - PHQ-9 Billing: Yes ([id number]) Assessment & Plan Assessment & Plan (1) Increased prostate specific antigen (PSA) velocity: Code(s): R97.20 - Elevated prostate specific antigen [PSA] Category: Medical (2) Anemia: Code(s): D64.9 - Anemia, unspecified Category: Medical (3) Systolic murmur: Code(s): R01.1 - Cardiac murmur, unspecified Category: Medical (4) Physical exam: Code(s): Z00.00 - Encounter for general adult medical examination without abnormal findings Category: Medical Plan . Orders: Orders Complete Blood Count Auto Diff Today D64.9 - Anemia, unspecified Lactate Dehydrogenase Today D64.9 - Anemia, unspecified IRON PROFILE Today D64.9 - Anemia, unspecified Ferritin Today D64.9 - Anemia, unspecified Vitamin B12 and Folate Today D64.9 - Anemia, unspecified Reticulocyte Count Today D64.9 - Anemia, unspecified CA echo transthoracic complete Today R01.1 - Cardiac murmur, unspecified Referrals Urology Referral R97.20 - Elevated prostate specific antigen [PSA] Medications: Refilled tadalafil (Cialis) administer approximately 30min before sexual activity; do not use more than 1 dose per 24hrs 10 mg PO DAILY PRN 10 tabs 0RF sexual activity
== END 2024-10-02 08:39 | disposition home or self-care (01) ==
PROVIDERS: PCP Nurse Practitioner Family; Visit Provider Nurse Practitioner Family
DX: R97.20 Elevated prostate specific antigen [PSA] (principal); D64.9 Anemia, unspecified; R01.1 Cardiac murmur, unspecified; Z00.00 Encounter for general adult medical examination without abnormal findings

== ENCOUNTER → 2024-10-02 07:20 | Outpatient (BNVA) | payer MEDICARE, SELFPAY | PROVIDERS: PCP Nurse Practitioner Family; Visit Provider Nurse Practitioner Family | DX: Z00.00 Encounter for general adult medical examination without abnormal findings (principal); D64.9 Anemia, unspecified; R01.1 Cardiac murmur, unspecified; R97.20 Elevated prostate specific antigen [PSA] | CPT/HCPCS: 96127; 99397 ==

== ENCOUNTER → 2024-10-16 14:45 | Outpatient (REF) | payer MEDICARE, SELFPAY ==
--- NOTE | 2024-10-16 14:47 | CA_ITS ---
Transthoracic Echocardiogram Patient (Last, First, Middle): Bernabe Cedillo, Gender: Male Date of : 1955 Age: 69 Procedure Date: 10/16/2024 Procedure Type: Transthoracic Echocardiogram Location: OP Height: 180.34 cm Weight: 90.72 kg BSA: 2.11 m2 Heart Rate: bpm BP: 122 / 60 mmHg Ball Fringe Machine Operator: Referring MD: Eb Crowell [facility] Symptoms: R01.1 - Cardiac murmur, unspecified Study Quality: Adequate ECG Rhythm: Sinus Conclusions: - The left ventricular systolic function is normal. The calculated ejection fraction is 64% by biplane method. - No obvious valvular pathology seen on this study. Findings Left Ventricle Normal left ventricular cavity size. There is mildly increased left ventricular wall thickness. The left ventricular systolic function is normal. The calculated ejection fraction is 64% by biplane method. There is no evidence of regional wall motion abnormalities. Evidence suggests grade I (mild) diastolic dysfunction. Right Ventricle Normal right ventricular cavity size and systolic function. Atria The left atrium is normal in size. Aortic Valve There is a normal trileaflet aortic valve. There is no aortic valve stenosis. There is no aortic valve regurgitation. Mitral Valve The mitral valve appears normal. There is no mitral valve regurgitation. There is no mitral valve stenosis. Pulmonic Valve The pulmonic valve is likely normal. Tricuspid Valve There is trace tricuspid valve regurgitation. There is no evidence of pulmonary hypertension. Great Vessels The asc aorta is normal in size. Venous The inferior vena cava is normal in size and collapses greater than 50% with inspiration. Pericardium/Pleural There is no evidence of pericardial effusion. Prior Study Comparison No prior study available for comparison. Recommendations, Care & Conclusions No obvious valvular pathology seen on this study. Measurements 2D Linear Measurements IVSd: 1.05 0.6-0.9/0.6-1.0 cm LVIDd: 4.56 3.9-5.3/4.2-5.9 cm LVIDd Index: 5.77 2.4-3.2/2.2-3.1 cm/m2 LVIDs: 2.58 2.0-3.6 cm LVPWd: 1.02 0.7-1.1 cm Ao Root: 3.40 2.1-3.5 cm LA Diam: 3.30 2.7-3.8/3.0-4.0 cm LAIDs Index: 4.18 1.5-2.3 cm/m2 LV Mass: 204.48 67-162/88-224 g LV Mass Index: 258.84 43-95/49-115 g/m2 LVOT Diam: 2.00 3.0+(-)1.3 cm 2D Systolic Function EF 4C: 61.00 >55% EF 2C: 65.80 >55% EF BiP: 63.50 >55% Mitral Valve MV Pk E: 0.75 MV PK A: 1.13 MV Decel Time: 168.00 E/A: 0.70 E'Lateral: 7.40 E'Medial: 5.87 E/E' Med: 12.70 E/E' Lat: 10.10 PHT: 49.00 MVA PHT: 4.49 Decel Peach: 4.44 Aortic Valve AoV Pk David: 2.02 AoV Mn David: 1.30 AoV VTI: 0.35 AoV Pk Grad: 16.00 Aov Mn Grad: 8.00 BAUTISTA Cont.VTI: 2.07 LVOT LVOT Pk David: 1.37 LVOT Mn David: 0.84 LVOT VTI: 0.23 LVOT Pk Grad: 8.00 LVOT Mn Grad: 3.00 LVOT Diam: 2.00 LVOT Area: 3.14 Diastolic Function MV Pk E: 0.75 MV Pk A: 1.13 E/A: 0.70 E'Medial: 5.87 E/E' Med: 12.70 E' Laterial: 7.40 E/E' Lat: 10.10 Right Ventricle TAPSE (mm): 30.00 TVS' David: 17.00 Tricuspid Valve TR Pk David: 2.23 TR Pk Grad: 20.00 RA Press: 3.00 RVSP: 23.00 Great Vessels Aorta Ao Root-2D: 3.40 2.0-3.7 cm Ao Asc: 3.20 2.1-3.4 cm Pulmonary Valve PV Pk David: 1.20 Peak PV Grad: 6.00 Updated in Other Vendor System with Status of Final Sonu Sweet MD electronically signed on 10/17/2024 10:58:28 AM with status of Final
--- OUTSIDE RECORDS SUMMARY | 2024-10-16 15:45 | XMS_ITS | Clinical Summary ---
Author Organization [facility] Address [address] [place] [address] Phone Care Team Providers Care Internal Salesperson Name Role Phone Eb Crowell NP Primary Care Provider Allergies No known active allergies Medications hydroCHLOROthiaz quang (HYDRODIURIL) 25 mg tablet Take 1 tablet (25 mg total) by mouth 1 (one) time each day. 07/29/2023 Active losartan (COZAAR) 100 mg tablet Take 1 tablet (100 mg total) by mouth 1 (one) time each day. 11/23/2023 Active rosuvastatin (CRESTOR) 5 mg tablet Take 1 tablet (5 mg total) by mouth 1 (one) time each day. Active fluticasone-salm eterol (ADVAIR DISKUS) 250-50 mcg/dose diskus inhaler Inhale [...] AM EST Office Visit [facility] [place] [address] [place] [id number] Jeri Toro PA History of lung cancer (Primary Dx); Multiple pulmonary nodules 08/14/2024 4:30 PM EST - 08/14/2024 11:59 PM EST Hospital Encounter [facility] CT Scan [address] [place] [id number] H/O malignant neoplasm of lung Discharge Disposition: Home or Self Care 08/14/2024 4:00 PM EST - 08/14/2024 11:59 PM EST Hospital Encounter [facility] CT Scan [address] [place] [phone] Discharge Disposition: Home or Self Care from [...] Recorded Sex Assigned at Not on file Legal Sex Male 11:51 AM EST Gender Identity Not on file Sexual Orientation Not on file Obstetrics History Last Filed [...] 60+ Years Old Completed 07/30/2023 Pneumococcal Vaccine: 50+ Years Completed 09/08/2023, 08/16/2022 Influenza Vaccine Completed [...] patient's age to complete this topic Meningococcal B Vacine Aged Out No lo nger eligible based on patient's age to complete [...] Signed Date: 08/16/2024 10:46 ET Workstation ID: [id number] Transcribed By: Self Edit Transcribed Date: 08/16/2024 10:33 ET Narrative 08/16/2024 10:46 AM EST EXAMINATION: CT chest without contrast. CLINICAL INDICATION: Non-small cell lung cancer, monitoring. COMPARISON: CT chest 09/20/2023 and 09/09/2022.. TECHNIQUE: 2.5 mm thin axial and reformatted 3 mm thin sagittal and coronal images of chest were obtained. Scanner: [employer] 64 slice VCT Dose reduction technique: ASIR [...] andcoronal images of chest were obtained. Scanner: [employer] 64 sliceVCT Dose reduction technique: ASIR (Adaptive [...] Signed Date: 08/16/2024 10:46 ET Workstation ID: [id number] Transcribed By: Self Edit Transcribed Date: 08/16/2024 10:33 ET Jeri ROSS IMG CT PROCEDURES Final Resul t from Last [address] [place] [address] [place] [address] [employer] - [place] MEDICARE ADVANTAGE Care Teams Internal Salesperson Relationship Specialty Start Date End Date Eb Crowell NP [address] [place], [place] PCP - General 02/25/21
--- OUTSIDE RECORDS SUMMARY | 2024-10-16 15:45 | XMS_ITS | Patient Health Record ---
Author Organization [facility] Address [address] [place] [address] Care Team Providers Care Tactical Debriefer Name Role Phone SANDIECarla JOSE J Primary Care Provider Maren e Cameron Garza Unavailable [phone] ALLERGIES No Known Allergies REASON FOR REFERRAL [...] malignant neoplasm of colon (Z12.11) Active confirmed [id number] Problem Encounter for screening for malignant neoplasm of rectum (Z12.12) Active confirmed Screening fo r malignant neoplasm of rectum (551194930) Problem Preprocedural examination (Z01.818) Active confirmed 77509916 Problem Hx of adenomatous colonic polyps (Z86.010) Active confirmed 150668088 Problem Pre-procedural examination (Z01.818) Active confirmed [id number] Problem History of adenomatous polyp of colon (Z86.010) Active confirmed 531906406 Problem Colon cancer screening (Z12.11) Active confirmed 818734934 Problem Diverticulosis of large intestine without perforation or abscess without bleeding (K57.30) Active confirmed Diverticul ar disease of colon (881236261) PLAN OF TREATMENT Pending Test Test Name Order Date Pathology 11/01/2022 Future Test Test Name Order Date COLONOSCOPY 09/24/2016 COLONOSCOPY 09/08/2018 COLONOSCOPY 09/01/2022 Insurance Providers Payer Name Payer Address Payer Phone Subscriber Number Group Number Insured Name Patient Relationship to Insured Coverage Start Date Coverage End Date [facility] [address] [place], [place] [id number] CAMERON CEDILLO Self - patient is the insured MEDICAL (GENERAL) HISTORY Medical History History ICD Code Hypertension COPD Denies AK,DM,CVA,Lung disease,renal dise ase Sleep apnea Screening colonoscopy [...]
== END ==
LOC: HO.CARD 14:45
PROVIDERS: PCP Nurse Practitioner Family; Visit Provider Nurse Practitioner Family
DX: R01.1 Cardiac murmur, unspecified (principal)
CPT/HCPCS: 93306

== ENCOUNTER → 2024-10-16 14:47 | Outpatient (BNV) | payer MEDICARE, SELFPAY | PROVIDERS: PCP Nurse Practitioner Family; Visit Provider Internal Medicine | DX: R01.1 Cardiac murmur, unspecified (principal) | CPT/HCPCS: 93306 ==

== ENCOUNTER 2024-11-12 15:47 | Outpatient (AMB) | payer MEDICARE, SELFPAY ==
[2024-11-12 15:51] VITALS: BP 122/82; PULSE 71; O2SAT 99; BMI 28.3
--- NOTE | 2024-11-12 15:51 | A.OFFVIS_ITS ---
Vital Signs 11/12/24 15:51 Height 5 ft 11 in Weight 202 lb 13.204 oz BMI 28.3 BP 122/82 Blood Pressure Location Lt brachial Position Sitting Pulse 71 Pulse Source Pulse Oximeter Pulse Oximetry (%) 99 Oxygen Delivery Method Room Air Intake Visit Reasons: Shortness of breath Intake Note: pt is here for follow up and is doing well Seismograph Operator Helper Required: No Allergies No Known Allergies [No Known Allergies*] Allergy (Verified 11/12/24 16:10) Medication List - Last Reconciled 11/12/24 by Apoorva Gage MD clindamycin phosphate 1% topical BID PRN fluticasone propion-salmeterol 250-50 mcg/dose (Wixela Inhub) 1 inh inhalation Q12H 30 days fluticasone propionate 50 mcg/actuation 1 spray intranasal DAILY 30 days halobetasol propionate 0.05% appl topical hydrochlorothiazide 25 mg PO DAILY losartan 100 mg PO DAILY multivitamin 1 tab PO DAILY rosuvastatin 5 mg PO DAILY tadalafil (Cialis) 10 mg PO DAILY PRN Do you need a note to return to daycare/school/sports/work: No HPI HPI Shortness of breath: Details: 69 YEARS OLD GENTLEMAN IS COMING AFTER. 6 MONTHS FOR HIS ROUTINE FOLLOW-UP HE HAS BEEN DOING VERY WELL, AND NOW HAS CUT DOWN USING WIXELA TO ONLY ONCE A DAY. .DENIES ANY COUGH OR WHEEZING HE NO LONGER HAS ANY TIGHT FEELING IN THE CHEST ON WALKING, HE IS ALSO CASE OF OBSTRUCTIVE SLEEP APNEA, HAS USED HIS CPAP FOR MORE THAN 10 YEARS. HIS CURRENT CPAP MACHINE IS ABOUT 2 YEARS OLD AND IS WORKING VERY WELL. 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 MUNOZ . [facility] Medical History Pulmonary nodules Bronchitis LUCINA on CPAP Pneumonia Mild reactive airways disease Cough Tubular adenoma of colon Erectile dysfunction Nocturia Sleep apnea COPD (chronic obstructive pulmonary disease) HTN (hypertension) Heart murmur Surgical History S/P lobectomy of lung Family History Father No problems noted. Mother Cancer Social History Housing: House Patient Tobacco Use Status: Former Tobacco user e-Cigarette/Vaping Use: Never Used service: No Current occupational status: employed Cognitive needs: No Hearing needs: No Vision needs: Yes Review of Systems Const All systems reviewed & are unremarkable except as noted in HPI and below Eyes Reports no additional complaints ENT Reports no additional complaints Card Denies chest pain, Denies irregular heart rhythm and Denies leg edema Resp Reports as per HPI GI Reports no additional complaints Reports erectile dysfunction Musc Reports no additional complaints Skin/Breast Reports system reviewed and no additional complaints, except as documented Neuro Reports no additional complaints Psych Reports no additional complaints Physical Exam Vital Signs: Last Vital Signs Pulse 71 11/12/24 15:51 BP 122/82 11/12/24 15:51 Pulse Ox 99 11/12/24 15:51 Oxygen Delivery Method Room Air 11/12/24 15:51 BMI result Body Mass Index 28.3 Const General: healthy appearing, comfortable, no acute distress, alert and awake Orientation/consciousness: patient oriented x3 HEENT Head: Yes normal to inspection General nose exam: No nasal polyps present and No nasal discharge present Face and sinus: Yes sinuses nontender Mouth: oropharynx normal Throat: Yes posterior oropharynx normal Eyes General: appearance normal, both eyes and all related structures Neck Neck: Yes normal visual inspection, Yes no lymphadenopathy, Yes trachea midline and Yes no JVD Thyroid: Thyroid normal Chest Chest palpation & inspection: normal inspection of the chest, normal palpation of entire chest wall and no tenderness Resp Other: Percussion note is resonant, has good breath sounds on both sides. The breath sounds over the lower lobe areas are somewhat diminished . Breath sounds are very clear and no wheezes or rhonchi are heard. Cardio Palpation: normal PMI Rate: regular rate Rhythm: regular rhythm Heart sounds: no gallops and no murmurs GI Palpation (GI): Soft to palpation, nontender, No hepatosplenomegaly present and no masses Auscultation: normal bowel sounds Back/Spine/Pelvis Thoracic/Lumbar Spine: thoracic and lumbar spine normal to inspection Skin General skin exam: no rashes or lesions noted Neuro General: patient oriented x3 and no focal motor deficits Cranial nerves: Yes CN's II-XII intact bilaterally Extrem General: Yes normal to inspection, Yes no clubbing, cyanosis or edema and Yes no calf tenderness Psych Appearance: grossly normal and well kempt Speech and movement: Normal speech and movement present Assessment & Plan Assessment & Plan (1) COPD (chronic obstructive pulmonary disease): Comment: He has past history of smoking that he quit about 12-13 years ago. Has been treated for mild COPD with albuterol HFA 2 puffs Q 4-6 hours only p.r.n.. HE FEELS BETTER WHEN HE USES A LONG-ACTING BRONCHODILATOR, SUCH SEREVENT. At present he is doing very well with the Wixela 250 -50 b.i.d. Code(s): J44.9 - Chronic obstructive pulmonary disease, unspecified Category: Medical Plan: ADVISED TO USE WIXELA 250-51 INHALATION B.I.D., BUT IF HE REMAINS SYMPTOM-FREE FOR MORE THAN A FEW WEEKS HE CAN CUT IT DOWN TO ONCE A DAY. ALBUTEROL HFA 2 PUFFS, Q 6 HOURS ONLY P.R.N. (2) Pulmonary nodule: Comment: RT LOWER LOBE , S/P RESECTION . RESOLVED . Code(s): R91.1 - Solitary pulmonary nodule Category: Medical Plan: CONTINUE REGULAR FOLLOW-UPS WITH THORACIC SURGEON DR. MUNOZ . (3) Cough: Comment: COUGH IS SECONDARY TO ACUTE BRONCHITIS, ON TOP OF HIS MILD CHRONIC OBSTRUCTIVE PULMONARY DISEASE. AND AT PRESENT IT IS INACTIVE. Code(s): R05 - Cough Category: Medical Plan: ABOVE (4) LUCINA on CPAP: Comment: PATIENT DOES HAVE HISTORY OF OBSTRUCTIVE SLEEP APNEA, FOR THE PAST MANY YEARS. AND HE IS USING CPAP EVERY NIGHT, SLEEPS VERY GOOD. NO ISSUES RELATED TO THE MASK OR CPAP DEVICE AT THIS TIME. Code(s): G47.33 - Obstructive sleep apnea (adult) (pediatric); Z99.89 - Dependence on other enabling machines and devices Category: Medical Plan: CONTINUE USING CPAP EVERY NIGHT Coding Level of Care Code Est Pt Level 3 (56413) Diagnoses COPD (chronic obstructive pulmonary disease) J44.9 Pulmonary nodule R91.1 Cough R05 LUCINA on CPAP G47.33; Z99.89
--- OUTSIDE RECORDS SUMMARY | 2024-11-12 18:14 | XMS_ITS | Patient Health Record ---
Author Organization [facility] Address [address] [place] [address] Care Team Providers Care Butt Sawyer Name Role Phone SHANNANESTER JOSE J Primary Care Provider Cameron Jimenez Unavailable [phone] Allergies No Known Allergies Reason For Referral No Information Medications Medication SIG (Take, Route, Frequency, Duration) Notes [...] 1 tablet Orally Once a day Active Immunizations Vaccine Route Administration Date Status Comme nts Influenza Unknown 06/15/2022 Administered Influenza Unknown 09/08/2018 Refused Social History Alcohol Screen Question Answer Notes Did you [...] Never (0 point) Points 2 Interpretation Negative Section Notes: Nonsmoker x 10 years; occasi onal alcohol Nonsmoker x 10 years; occasi onal alcohol Nonsmoker x 10 years; occasi onal alcohol Problems Problem Type SNOMED Code ICD Code Onset Dates Problem Status W/U Status Risk Notes Problem 652112407 Colon cancer screening (Z12.11) Active confirmed Problem 584033788 Encounter for screening for malignant neoplasm of colon (Z12.11) Active confirmed Problem 218320450 History of adenomatous polyp of colon (Z86.010) Active confirmed Problem Diverticular disease of colon (091303440) Diverticulosis of large intestine without perforation or abscess without bleeding (K57.30) Active confirmed Problem Screening for malignant neoplasm of rectum (340047813) Encounter for screening for malignant neoplasm of rectum (Z12.12) Active confirmed Problem 24401321 Preprocedural examination (Z01.818) Active confirmed Problem 087644373 Hx of adenomatou s colonic polyps (Z86.010) Active confirmed Problem 385196290968093 Pre-procedural examination (Z01.818) Active confirmed Plan Of Treatment Pending Test Test Name Order Date Pathology 11/01/2022 Future Test Test Name Order Date COLONOSCOPY 09/24/2016 COLONOSCOPY 09/08/2018 COLONOSCOPY 09/01/2022 Insurance Providers Payer Name Payer Address Payer Phone Subscriber Number Group Number Insured Name Patient Relationship to Insured Coverage Start Date Coverage End Date [facility] [address] [place], [place] [id number] CAMERON CEDILLO Self - patient is the insured Medical (General) History Medical History History ICD Code Hypertension COPD Denies OR,DM,CVA,Lung disease,renal dise ase Sleep apnea Screening colonoscopy [...]
--- OUTSIDE RECORDS SUMMARY | 2024-11-12 18:14 | XMS_ITS | Clinical Summary ---
Author Organization [facility] Address [address] [place] [address] Phone Care Team Providers Care Roading Engineer Name Role Phone Eb Crowell NP Primary [...] AM EST Office Visit Thoracic Surgery - [place] [address] [place] [id number] Jeri Toro PA History of lung cancer (Primary Dx); Multiple pulmonary nodules 08/14/2024 4:30 PM EST - 08/14/2024 11:59 PM EST Hospital Encounter [facility] CT Scan [address] [place] [phone] H/O malignant neoplasm of lung Discharge Disposition: Home or Self Care 08/14/2024 4:00 PM EST - 08/14/2024 11:59 PM EST Hospital Encounter [facility] CT Scan [address] [place] [phone] Discharge Disposition: Home or Self Care from [...] Signed Date: 08/16/2024 10:46 ET Workstation ID: [id number] Transcribed By: Self Edit Transcribed Date: 08/16/2024 10:33 ET Narrative 08/16/2024 10:46 AM EST EXAMINATION: CT chest without contrast. CLINICAL INDICATION: Non-small cell lung cancer, monitoring. COMPARISON: CT chest 09/20/2023 and 09/09/2022.. TECHNIQUE: 2.5 mm thin axial and reformatted 3 mm thin sagittal and coronal images of chest were obtained. Scanner: [employer] 64 slice VCT Dose reduction technique: ASIR [...] andcoronal images of chest were obtained. Scanner: [employer] 64 sliceVCT Dose reduction technique: ASIR (Adaptive [...] Signed Date: 08/16/2024 10:46 ET Workstation ID: [id number] Transcribed By: Self Edit Transcribed Date: 08/16/2024 10:33 ET Jeri ROSS IMG CT PROCEDURES Final Resul t from Last [address] [place] [address] [address] BLUE [place]OSS - [place] MEDICARE ADVANTAGE Care Teams Roading Engineer Relationship Specialty Start Date End Date Eb Crowell NP [address] [place], [place] PCP - General 02/25/21
== END 2024-11-12 16:18 | disposition home or self-care (01) ==
LOC: HO.HPS 15:48
PROVIDERS: PCP Nurse Practitioner Family; Visit Provider Internal Medicine
DX: J44.9 Chronic obstructive pulmonary disease, unspecified (principal); R91.1 Solitary pulmonary nodule; R05.9 Cough, unspecified; G47.33 Obstructive sleep apnea (adult) (pediatric); Z99.89 Dependence on other enabling machines and devices
CPT/HCPCS: 99213

== ENCOUNTER → 2024-11-12 15:47 | Outpatient (BNVA) | payer MEDICARE, SELFPAY | PROVIDERS: PCP Nurse Practitioner Family; Visit Provider Internal Medicine | DX: J44.9 Chronic obstructive pulmonary disease, unspecified (principal); R91.1 Solitary pulmonary nodule; R05.9 Cough, unspecified; G47.33 Obstructive sleep apnea (adult) (pediatric); Z99.89 Dependence on other enabling machines and devices | CPT/HCPCS: 99212 ==

== ENCOUNTER 2024-11-27 10:50 | Outpatient (AMB) | payer MEDICARE, SELFPAY ==
--- NOTE | 2024-11-27 11:01 | A.OFFVIS_ITS ---
Intake Visit Reasons: elevating PSA Intake Note: New Patient presents for initial visit for Rising PSA Urology Medications: tadalafil Blood Thinner:none Radiology Specialist Required: No Craft Superintendent: Craft Superintendent offered & declined Accompanied by: Self / Same As Patient Allergies No Known Allergies [No Known Allergies*] Allergy (Verified 11/27/24 11:31) Medication List - Last Reconciled 11/27/24 by LIO Hall- clindamycin phosphate 1% topical BID PRN fluticasone propion-salmeterol 250-50 mcg/dose 1 ea PO Q12H fluticasone propionate 50 mcg/actuation 1 spray intranasal DAILY 30 days halobetasol propionate 0.05% appl topical hydrochlorothiazide 25 mg PO DAILY losartan 100 mg PO DAILY multivitamin 1 tab PO DAILY rosuvastatin 5 mg PO DAILY tadalafil (Cialis) 10 mg PO DAILY PRN HPI Comments Details: Bernabe Merino is a very pleasant 61-year-old male patient of Dr. Quijano. He has a past medical history of pulmonary nodules, bronchitis, LUCINA on CPAP, pneumoniae, ED, nocturia, hypertension, and heart murmur. He presents to the office today as a new patient for further assessment evaluation of increase in PSA. In discussion with the patient today he denies any bothersome urinary issues or concerns he does report episodes of nocturia however does not find these bothersome and feels he is self managing. He denies urinary urgency, urinary frequency, incontinence, hematuria, dysuria, foul smelling urine, changes to urinary stream, flank pain, fever, and or chills. He is happy with his current voiding parameters. When asked he does report his maternal cousin had a history of prostate cancer was diagnosed in his 70s. In office urinalysis results reviewed with the patient today. SIERRA performed; smooth and no suspicious nodules palpated. PSAs are as follows: 01/15 1.3, 02/16 1.4, 11/19 1.2 09/22 2.7 We discussed at length potential causes of increase in PSA when compared to last year. We discussed obtaining redraw of PSA with no sex the night before, no caffeine morning of, and no heavy lifting 1-2 days prior. He otherwise offers no other issues or concerns at this time. Plan For the elevated PSA, the patient will undergo repeat blood work, ensuring that conditions which might artificially elevate PSA levels are avoided, such as ca ffeine, ejaculation, and physical exertion close to the testing time. I conducted a digital rectal examination today, finding no abnormalities. The patient is aware of the importance of monitoring PSA over time due to potential variations arising from physical activity and prostate size increase. I have ordered follow-up PSA testing and will review results to determine the need for any subsequent interventions. Consent and discussion regarding the rectal examination were completed with the patient. Patient was informed and verbally consented to the use of an ambient scribe for clinic note documentation during this visit. Discussion Notes I thoroughly discussed with the patient the implications of an elevated PSA, including the various factors influencing levels such as physical activity and prostate size variations. We reviewed strategies for obtaining the most accurate readings for the upcoming blood work, emphasizing the avoidance of caffeine, alcohol, and ejaculation prior to testing. During our conversation, I explained the detailed process for monitoring PSA and the potential future steps should further interventions become necessary. Consent has been obtained for today's di gital rectal examination, outlining risks, benefits, possibilities of findings, and the general procedure performed today. We also addressed the patient's family history of prostate cancer, explaining its possible implications for future monitoring. The patient agreed to the outlined plan and follow-up orders for repeated PSA tests at an appropriate time. [facility] Medical History Pulmonary nodules Bronchitis LUCINA on CPAP Pneumonia Mild reactive airways disease Cough Tubular adenoma of colon Erectile dysfunction Nocturia Sleep apnea COPD (chronic obstructive pulmonary disease) HTN (hypertension) Heart murmur Surgical History S/P lobectomy of lung Family History Father No problems noted. Mother Cancer Social History Housing: House Patient Tobacco Use Status: Former Tobacco user e-Cigarette/Vaping Use: Never Used service: No Current occupational status: employed Cognitive needs: No Hearing needs: No Vision needs: Yes Review of Systems Const All systems reviewed & are unremarkable except as noted in HPI and below Physical Exam Const General: cooperative, healthy appearing, comfortable, no acute distress, well developed, alert and awake Orientation/consciousness: patient oriented x3 HEENT Head: Yes normal to inspection, Yes normocephalic and Yes atraumatic Ears: hearing grossly normal bilaterally Eyes General: appearance normal, both eyes and all related structures Neck Neck: Yes normal visual inspection and Yes trachea midline Chest Chest palpation & inspection: normal inspection of the chest Resp Effort & Inspection: normal respiratory effort and able to speak in complete sentences Cardio Rate: regular rate GI Inspection: Yes normal to inspection General: Yes no CVA tenderness Back/Spine/Pelvis Back: no CVA tenderness Skin General skin exam: no rashes or lesions noted Neuro General: patient oriented x3 Extrem General: Yes normal to inspection Psych Appearance: grossly normal and well kempt Mental Status: mental status grossly normal Speech and movement: Normal speech and movement present and Clear speech present Affect: normal affect Attitude: cooperative Thought process: Normal thought process present Thought content: Normal thought content present Insight: Fair insight present (Psych) Judgement: Fair judgement present (Psych) Results AMB Urinalysis, Automated UA Leukoctes 0 Remigio/uL Last Edit by Famigo on 11/27/24 11:15 UA Nitrite Negative Last Edit by Famigo on 11/27/24 11:15 UA Urobilinogen 0.2 mg/dL Last Edit by Famigo on 11/27/24 11:15 UA Protein 15 mg/dL Last Edit by Famigo on 11/27/24 11:15 UA pH 6.0 Last Edit by Famigo on 11/27/24 11:15 UA Blood 0 Jose/uL Last Edit by Famigo on 11/27/24 11:15 UA Specific Beulah 1.015 Last Edit by Famigo on 11/27/24 11:15 UA Ketone Negative Last Edit by Famigo on 11/27/24 11:15 UA Bilirubin 0 mg/dL Last Edit by Patel Nava on 11/27/24 11:15 UA Glucose 0 mg/dL Last Edit by Patel Nava on 11/27/24 11:15 Results Reviewed Results Reviewed: Laboratory Last Values Urine pH (Auto) 6.0 11/27/24 11:14 Specific Beulah (Auto) 1.015 11/27/24 11:14 Urine Protein (Auto) 15 mg/dL 11/27/24 11:14 Glucose (UA)(Auto) 0 mg/dL 11/27/24 11:14 Urine Ketones (Auto) Negative 11/27/24 11:14 Urine Blood (Auto) 0 Jose/uL 11/27/24 11:14 Urine Nitrite (Auto) Negative 11/27/24 11:14 Urine Bilirubin (Auto) 0 mg/dL 11/27/24 11:14 Urine Urobilinogen (Auto) 0.2 mg/dL 11/27/24 11:14 Leukocyte Esterase (Auto) 0 Remigio/uL 11/27/24 11:14 Assessment & Plan Assessment & Plan (1) Increased prostate specific antigen (PSA) velocity: Code(s): R97.20 - Elevated prostate specific antigen [PSA] Category: Medical Plan In office urinalysis results reviewed with the patient today; as noted above. SIERRA performed as noted above. Previous and most recent PSA results reviewed with the patient today; as noted above. We discussed at length potential causes of slight increase in PSA over the last year Will repeat PSA with no sex the night before, no caffeine morning of, and no heavy lifting 1-2 days prior. Patient currently denies any bothersome urinary issues or concerns. He reports be happy with current voiding parameters. Follow-up in 1-2 months with PSA to be completed prior; or sooner with any issues, concerns, and or questions. Orders: Orders AMB Urinalysis Automated Today Z13.9 - Encounter for screening, unspecified Prostate Specific Antigen Today R97.20 - Elevated prostate specific antigen [PSA] Patient Instructions: The patient had an opportunity to ask questions regarding the treatment plan. All questions were answered. Physical exam, labs, and imaging were discussed and reviewed in detail. As well as risks, benefits, and discussion of treatment choices. No major barriers to understanding were identified. The patient expressed understanding and agreement with the above treatment plan. The patient was made aware they should contact our office by phone for worsening of their current condition, the appearance of new symptoms, or with any questions or concerns. Compliance is encouraged with any medications and follow up testing that is ordered. It is a privilege to be allowed the opportunity to participate in? your urological care.? Again, if you have any questions or concerns If you have any questions or concerns please do not hesitate to contact me. The office is [phone]. This note is constructed using voice recognition software. While every effort has been made to ensure accuracy chef's assistant errors may have been included. Yours sincerely, SELMA Hall Coding Level of Care Code New Pt Level 3 (54814) Diagnoses Increased prostate specific antigen (PSA) velocity R97.20
--- OUTSIDE RECORDS SUMMARY | 2024-11-27 13:00 | XMS_ITS | Clinical Summary ---
Author Organization [facility] Address [address] [place] [address] Phone Care Team Providers Care Police Officer Name Role Phone Eb Crowell NP Primary [...] AM EST Office Visit Thoracic Surgery - [address] [place] [address] Jeri Toro PA History of lung cancer (Primary Dx); Multiple pulmonary nodules from Last 3 Months Surgical History Surgery [...] on patient's age to complete this topic Insurance [employer] - [place] MEDICARE ADVANTAGE Care Teams Police Officer Relationship Specialty Start Date End Date Eb Crowell NP [address] [place], [place] PCP - General 02/25/21
--- OUTSIDE RECORDS SUMMARY | 2024-11-27 13:00 | XMS_ITS | Patient Health Record ---
Author Organization [facility] Address [address] [place] [address] Care Team Providers Care Preparation Supervisor Name Role Phone SANDIECarla JOSE J Primary Care Provider Cameron Jimenez Unavailable [phone] Allergies No Known Allergies Reason For Referral [...] Problem Status W/U Status Risk Notes Problem 324958159 Colon cancer screening (Z12.11) Active confirmed Problem 736622491 Encounter for screening for malignant neoplasm of colon (Z12.11) Active confirmed Problem 310178658 History of adenomatous polyp of colon (Z86.010) Active confirmed Problem Diverticular disease of colon (141326526) Diverticulosis of large intestine without perforation or abscess without bleeding (K57.30) Active confirmed Problem Screening for malignant neoplasm of rectum (002267574) Encounter for screening for malignant neoplasm of rectum (Z12.12) Active confirmed Problem 63131946 Preprocedural examination (Z01.818) Active confirmed Problem 785882970 Hx of adenomatou s colonic polyps (Z86.010) Active confirmed Problem 948093541991264 Pre-procedural examination (Z01.818) Active confirmed Plan Of Treatment Pending Test Test Name Order Date Pathology 11/01/2022 Future Test Test Name Order Date COLONOSCOPY 09/24/2016 COLONOSCOPY 09/08/2018 COLONOSCOPY 09/01/2022 Insurance Providers Payer Name Payer Address Payer Phone Subscriber Number Group Number Insured Name Patient Relationship to Insured Coverage Start Date Coverage End Date [facility] [address] [place], [place] [id number] CAMERON CEDILLO Self - patient is the insured Medical (General) History Medical History History ICD Code Hypertension COPD Denies [place],DM,CVA,Lung disease,renal dise ase Sleep apnea Screening colonoscopy [...]
== END 2024-11-27 11:31 | disposition home or self-care (01) ==
LOC: HO.HUSH 10:51
PROVIDERS: PCP Nurse Practitioner Family; Visit Provider Nurse Practitioner Family
DX: R97.20 Elevated prostate specific antigen [PSA] (principal); Z13.9 Encounter for screening, unspecified
CPT/HCPCS: 99203

== ENCOUNTER → 2024-11-27 10:50 | Outpatient (BNVA) | payer MEDICARE, SELFPAY | PROVIDERS: PCP Nurse Practitioner Family; Visit Provider Nurse Practitioner Family | DX: N52.9 Male erectile dysfunction, unspecified (principal); R35.1 Nocturia; R97.20 Elevated prostate specific antigen [PSA] | CPT/HCPCS: 81003; 99202 ==

== ENCOUNTER 2024-12-19 08:18 | Outpatient (REF) | payer MEDICARE, SELFPAY ==
[2024-12-19 08:35] LABS: MANUAL DIFF FLAG NO
--- OUTSIDE RECORDS SUMMARY | 2024-12-19 08:35 | XMS_ITS | Clinical Summary ---
Author Organization [facility] Address [address] [place] [address] Phone Care Team Providers Care Glass Smoother Name Role Phone Eb Crowell NP Primary Care Provider Allergies No known active allergies Medications hydroCHLOROthiaz uqang (HYDRODIURIL) 25 mg tablet Take 1 tablet [...] in the office after that next scan. Surgical History Surgery Date Site/Laterality Comments LUNG LOBECTOMY 08/17/2020 Right RUL Medical History Medical History Date Comments Bronchitis COPD (chronic obstructive pulmonary disease) (CM S/HCC V24, CMS/HCC V28) Cough Erectile dysfunction Hypertension Heart murmur Essential [...] Td or Tdap) 05/03/2028 05/03/2018 RSV Immunization Adult Patients Completed 07/30/2023 Pneumococcal Vaccine: 50+ Years Completed [...] age to complete this topic Meningococcal B Vaccine Aged Out No l onger eligible based on patient's age to complete this topic RSV Immunization Patients Under 20 months Aged Out No longer eligible based on patient's age to complete this topic Varicella Vaccines Aged Out No longer eligible based on patient's age to complete this topic [facility] [place] MEDIC[facility] ADVANTAGE Care Teams Glass Smoother Relationship Specialty Start Date End Date Eb Crowell NP [address] [place], [place] PCP - General 02/25/21
--- OUTSIDE RECORDS SUMMARY | 2024-12-19 08:35 | XMS_ITS | Patient Health Record ---
Author Organization [facility] Address [address] [place] [id number] Care Team Providers Care Dietary Server Name Role Phone SHANNANESTER JOSE J Primary Care Provider Cameron Jimenez Unavailable [phone] Allergies No Known Allergies Reason For Referral [...] Problem Status W/U Status Risk Notes Problem 944855990 Colon cancer screening (Z12.11) Active confirmed Problem 339846469 Encounter for screening for malignant neoplasm of colon (Z12.11) Active confirmed Problem 748658705 History of adenomatous polyp of colon (Z86.010) Active confirmed Problem Diverticular disease of colon (420303229) Diverticulosis of large intestine without perforation or abscess without bleeding (K57.30) Active confirmed Problem Screening for malignant neoplasm of rectum (493677758) Encounter for screening for malignant neoplasm of rectum (Z12.12) Active confirmed Problem 72783831 Preprocedural examination (Z01.818) Active confirmed Problem 558321053 Hx of adenomatou s colonic polyps (Z86.010) Active confirmed Problem 525719873793623 Pre-procedural examination (Z01.818) Active confirmed Plan Of Treatment Pending Test Test Name Order Date Pathology 11/01/2022 Future Test Test Name Order Date COLONOSCOPY 09/24/2016 COLONOSCOPY 09/08/2018 COLONOSCOPY 09/01/2022 Insurance Providers Payer Name Payer Address Payer Phone Subscriber Number Group Number Insured Name Patient Relationship to Insured Coverage Start Date Coverage End Date [facility] [address] [place], [place] [id number] CAMERON CEDILLO Self - patient is the insured Medical (General) History Medical History History ICD Code Hypertension COPD Denies ND,DM,CVA,Lung disease,renal dise ase Sleep apnea Screening colonoscopy [...]
[2024-12-19 09:01] LABS: Basophils Absolute Auto 0.1 X10*3/uL (0.0-0.2); Basophils Percent Auto 1.3 % (0-2); Eosinophils Absolute Auto 0.2 X10*3/uL (0.0-0.4); Eosinophils Percent Auto 2.7 % (0-4); Hematocrit 40.5 % (42.0-52.0); Hemoglobin 14.5 g/dl (14.0-18.0); Imm Gran Abs Auto 0.02 X10*3/uL (0.00-0.03); Imm Gran Pct Auto 0.3 % (0.0-0.4); Immature Retic Fraction 5.6 % (2.3-13.4); Lymphocytes Absolute Auto 1.2 X10*3/uL (1.2-4.9); Mean Corpuscular HGB Conc 35.8 g/dl (31.0-36.0); Mean Corpuscular Hemoglobin 32.4 pg (27.0-33.0); Mean Corpuscular Volume 90.6 fL (80.0-98.0); Mean Platelet Volume 10.1 fL (9.4-12.4); Monocytes Absolute Auto 0.4 X10*3/uL (0.1-1.2); Monocytes Percent Auto 6.4 % (2-11); Neutrophils Absolute Auto 4.3 x10*3/uL (2.0-8.3); Neutrophils Percent Auto 69.3 % (45-73); Platelet Count 220 X10*3/uL (160-400); Red Blood Count 4.47 X10*6/uL (4.60-5.80); Red Cell Distribution Width 11.9 % (11.0-16.0); Retic HGB Equivalent 36.1 pg (30.0-35.0); Reticulocyte Percent 1.2 % (0.5-1.8); Reticulocytes Absolute 0.053 X10*6/uL (0.026-0.095); White Blood Count 6.2 X10*3/uL (4.8-10.8)
[2024-12-19 09:57] LABS: Iron 87 mcg/dL (45-160); Lactate Dehydrogenase 137 U/L (118-273); Percent Iron Saturation 31 % (15-50); Total Iron Binding Capacity 277 mcg/dL (228-428); Unsaturated Iron Binding 190 ug/dL
[2024-12-19 10:20] LABS: Ferritin 607 ng/mL (20-250)
[2024-12-19 10:23] LABS: Folate 10.1 ng/mL (> or = 4.0); Vitamin B12 765 pg/mL (200-900)
== END 2024-12-19 08:19 | disposition home or self-care (01) ==
LOC: HO.LAB 08:18
PROVIDERS: Absent Provider Nurse Practitioner Family; PCP Nurse Practitioner Family; Visit Provider Nurse Practitioner Family
DX: D64.9 Anemia, unspecified (principal); R97.20 Elevated prostate specific antigen [PSA]; Z12.5 Encounter for screening for malignant neoplasm of prostate
CPT/HCPCS: 36415; 82607; 82728; 82746; 83540; 83615; 84153; 85025; 85045

== ENCOUNTER 2025-01-08 09:31 | Outpatient (AMB) | payer MEDICARE, SELFPAY ==
--- NOTE | 2025-01-08 09:57 | A.OFFVIS_ITS ---
Intake Visit Reasons: 1m/PSA(set) Intake Note: Patient presents today for follow up on: Rising PSA and PSA lab results PSA: 1.50 Urology Medications: tadalafil Blood Thinner:none Hydrographic Surveyor Required: No Mail Rider: Mail Rider offered & declined Accompanied by: Self / Same As Patient Allergies No Known Allergies [No Known Allergies*] Allergy (Verified 01/08/25 10:22) Medication List - Last Reconciled 01/08/25 by SELMA Hall clindamycin phosphate 1% topical BID PRN fluticasone propion-salmeterol 250-50 mcg/dose 1 ea PO Q12H fluticasone propionate 50 mcg/actuation 1 spray intranasal DAILY 30 days halobetasol propionate 0.05% appl topical hydrochlorothiazide 25 mg PO DAILY losartan 100 mg PO DAILY multivitamin 1 tab PO DAILY rosuvastatin 5 mg PO DAILY tadalafil (Cialis) 10 mg PO DAILY PRN HPI Comments Details: Bernabe Merino is a very pleasant 69-year-old male patient of Dr. Quijano. He has a past medical history of pulmonary nodules, bronchitis, LUCINA on CPAP, pneumoniae, ED, nocturia, hypertension, and heart murmur. He presents to the office today for follow-up of his increase in PSA. Of note, patient was seen approximately 1 month ago as a new patient at which time redraw of PSA was ordered with specific instructions of no caffeine or alcohol morning of blood work, no heavy lifting 1-2 days prior, and or sexual activity the night before morning of the blood work. These results were reviewed and communicated with the patient today. PSAs are as follows: 01/15 1.3, 02/16 1.4, 11/19 1.2 09/22 2.7, 12/21 1.5 We discussed potential causes of fluctuation in PSA. He continues to deny any bothersome urinary issues or concerns. He does report episodes of nocturia however does not find these bothersome and feels he is self managing. He denies urinary urgency, urinary frequency, incontinence, hematuria, dysuria, foul smelling urine, changes to urinary stream, flank pain, fever, and or chills. He is happy with his current voiding parameters. When asked he does report his maternal cousin had a history of prostate cancer was diagnosed in his 70s. In office urinalysis results reviewed with the patient today. All questions were answered. We discussed continuation of surveillance monitoring he would like to continue doing so with his PCP. He otherwise offers no other issues or concerns at this time. [facility] Medical History Pulmonary nodules Bronchitis LUCINA on CPAP Pneumonia Mild reactive airways disease Cough Tubular adenoma of colon Erectile dysfunction Nocturia Sleep apnea COPD (chronic obstructive pulmonary disease) HTN (hypertension) Heart murmur Surgical History S/P lobectomy of lung Family History Father No problems noted. Mother Cancer Social History Housing: House Patient Tobacco Use Status: Former Tobacco user e-Cigarette/Vaping Use: Never Used service: No Current occupational status: employed Cognitive needs: No Hearing needs: No Vision needs: Yes Review of Systems Const All systems reviewed & are unremarkable except as noted in HPI and below Physical Exam Const General: cooperative, healthy appearing, comfortable, no acute distress, well developed, alert and awake Orientation/consciousness: patient oriented x3 HEENT Head: Yes normal to inspection, Yes normocephalic and Yes atraumatic Ears: hearing grossly normal bilaterally Eyes General: appearance normal, both eyes and all related structures Neck Neck: Yes normal visual inspection and Yes trachea midline Chest Chest palpation & inspection: normal inspection of the chest Resp Effort & Inspection: normal respiratory effort and able to speak in complete sentences Cardio Rate: regular rate GI Inspection: Yes normal to inspection General: Yes no CVA tenderness Back/Spine/Pelvis Back: no CVA tenderness Skin General skin exam: no rashes or lesions noted Neuro General: patient oriented x3 Extrem General: Yes normal to inspection Psych Appearance: grossly normal and well kempt Mental Status: mental status grossly normal Speech and movement: Normal speech and movement present and Clear speech present Affect: normal affect Attitude: cooperative Thought process: Normal thought process present Thought content: Normal thought content present Insight: Fair insight present (Psych) Judgement: Fair judgement present (Psych) Results AMB Urinalysis, Automated UA Leukoctes 0 Remigio/uL Last Edit by [email or web address] on 01/08/25 10:12 UA Nitrite Last Edit by [email or web address] on 01/08/25 10:12 UA Urobilinogen 0.2 mg/dL Last Edit by [email or web address] on 01/08/25 10:12 UA Protein 15 mg/dL Last Edit by [email or web address] on 01/08/25 10:12 UA pH 6.0 Last Edit by [email or web address] on 01/08/25 10:12 UA Blood 0 Jose/uL Last Edit by [email or web address] on 01/08/25 10:12 UA Specific [place] 1.025 Last Edit by [email or web address] on 01/08/25 10:12 UA Ketone Last Edit by [email or web address] on 01/08/25 10:12 UA Bilirubin 0 mg/dL Last Edit by [email or web address] on 01/08/25 10:12 UA Glucose 0 mg/dL Last Edit by [email or web address] on 01/08/25 10:12 Results Reviewed Results Reviewed: Laboratory Last Values Urine pH (Auto) 6.0 01/08/25 10:10 Specific [place] (Auto) 1.025 01/08/25 10:10 Urine Protein (Auto) 15 mg/dL 01/08/25 10:10 Glucose (UA)(Auto) 0 mg/dL 01/08/25 10:10 Urine Blood (Auto) 0 Jose/uL 01/08/25 10:10 Urine Bilirubin (Auto) 0 mg/dL 01/08/25 10:10 Urine Urobilinogen (Auto) 0.2 mg/dL 01/08/25 10:10 Leukocyte Esterase (Auto) 0 Remigio/uL 01/08/25 10:10 Assessment & Plan Assessment & Plan (1) Increased prostate specific antigen (PSA) velocity: Code(s): R97.20 - Elevated prostate specific antigen [PSA] Category: Medical Plan In office urinalysis results reviewed with the patient today; as noted above. Recent PSA results with the patient today; as noted above. Patient currently denies any bothersome urinary issues or concerns. He reports be happy with current voiding parameters. We discussed fluctuation in PSA; back to baseline at this time. We discussed surveillance monitoring however he would like to continue doing this with his PCP at this time Follow-up PRN Orders: Orders AMB Urinalysis Automated Today Z13.9 - Encounter for screening, unspecified Patient Instructions: The patient had an opportunity to ask questions regarding the treatment plan. All questions were answered. Physical exam, labs, and imaging were discussed and reviewed in detail. As well as risks, benefits, and discussion of treatment choices. No major barriers to understanding were identified. The patient expressed understanding and agreement with the above treatment plan. The patient was made aware they should contact our office by phone for worsening of their current condition, the appearance of new symptoms, or with any q uestions or concerns. Compliance is encouraged with any medications and follow up testing that is ordered. It is a privilege to be allowed the opportunity to participate in? your urological care.? Again, if you have any questions or concerns If you have any questions or concerns please do not hesitate to contact me. The office is [phone]. This note is constructed using voice recognition software. While every effort has been made to ensure accuracy property insurance inspector errors may have been included. Yours sincerely, SELMA Hall Coding Level of Care Code Est Pt Level 3 (51474) Complex EM visit Add On G2211 Diagnoses Increased prostate specific antigen (PSA) velocity R97.20
--- OUTSIDE RECORDS SUMMARY | 2025-01-08 10:09 | XMS_ITS | Patient Health Record ---
Author Organization [facility] Address [address] [place] [id number] Care Team Providers Care Licensed Investment Sales Assistant Name Role Phone SHANNANESTER JOSE J Primary Care Provider Cameron Jimenez Unavailable [phone] Allergies No Known Allergies Reason For Referral [...] Problem Status W/U Status Risk Notes Problem 422254306 Colon cancer screening (Z12.11) Active confirmed Problem 871366295 Encounter for screening for malignant neoplasm of colon (Z12.11) Active confirmed Problem 545552581 History of adenomatous polyp of colon (Z86.010) Active confirmed Problem Diverticular disease of colon (177569472) Diverticulosis of large intestine without perforation or abscess without bleeding (K57.30) Active confirmed Problem Screening for malignant neoplasm of rectum (063141548) Encounter for screening for malignant neoplasm of rectum (Z12.12) Active confirmed Problem 83818654 Preprocedural examination (Z01.818) Active confirmed Problem 025706691 Hx of adenomatou s colonic polyps (Z86.010) Active confirmed Problem 599242105203469 Pre-procedural examination (Z01.818) Active confirmed Plan Of Treatment Pending Test Test Name Order Date Pathology 11/01/2022 Future Test Test Name Order Date COLONOSCOPY 09/24/2016 COLONOSCOPY 09/08/2018 COLONOSCOPY 09/01/2022 Insurance Providers Payer Name Payer Address Payer Phone Subscriber Number Group Number Insured Name Patient Relationship to Insured Coverage Start Date Coverage End Date [facility] [address] [place], [place] [id number] CAMERON CEDILLO Self - patient is the insured Medical (General) History Medical History History ICD Code Hypertension COPD Denies [place],DM,CVA,Lung disease,renal dise ase Sleep apnea Screening colonoscopy [...]
== END 2025-01-08 10:15 | disposition home or self-care (01) ==
LOC: HO.HUSH 09:32
PROVIDERS: PCP Nurse Practitioner Family; Visit Provider Nurse Practitioner Family
DX: R97.20 Elevated prostate specific antigen [PSA] (principal); Z13.9 Encounter for screening, unspecified
CPT/HCPCS: 99213; G2211

== ENCOUNTER → 2025-01-08 09:31 | Outpatient (BNVA) | payer MEDICARE, SELFPAY | PROVIDERS: PCP Nurse Practitioner Family; Visit Provider Nurse Practitioner Family | DX: R97.20 Elevated prostate specific antigen [PSA] (principal) | CPT/HCPCS: 81003; 99212 ==